=== PATIENT | male | born 1950 | race Caucasian/White ===

== ENCOUNTER 2017-03-28 20:21 | Inpatient (IN) | payer MEDICARE ==
[~2017-03-28] VITALS: Ht 175.3 cm; Wt 56.7 kg
[~2017-03-28 20:21] MED LIST: Alprazolam PO; CHOL4PAC4 PO; DIPH1TAB70 PO; LEVE500T9 PO; LORA-259 PO; PANT40TA2 PO; TRAZ150T75 PO
[2017-03-28 20:50] LABS: BASOPHILS # (AUTO) 0.1 /CMM (0.0-0.2); BASOPHILS % (AUTO) 0.5 % (0.0-2.0); EOSINOPHILS % (AUTO) 2.4 % (0.0-6.0); HEMATOCRIT 37 % (39-51); HEMOGLOBIN 12.6 g/dL (13.5-17.5); LYMPHOCYTES # (AUTO) 1.4 /CMM (0.8-4.8); LYMPHOCYTES % (AUTO) 9.3 % (20.0-44.0); MEAN CORPUSCULAR HGB CONC 34 g/dl (31.0-36.0); MEAN CORPUSCULAR VOLUME 92 fL (80-96); MONOCYTES # (AUTO) 1.1 /CMM (0.1-1.30); NEUTROPHILS # (AUTO) 12.5 /CMM (1.8-8.9); NEUTROPHILS % (AUTO) 80.8 % (43.0-81.0); PLATELET COUNT (AUTO) 310 /CMM (150-450); RDW COEFFICIENT OF VARIATION 12.8 (11.5-15.0); RED BLOOD CELL COUNT(AUTO) 4.02 MIL/uL (4.5-6.0); WHITE BLOOD COUNT (AUTO) 15.5 K/uL (4.3-11.0)
[2017-03-28] MEDS ORDERED: MAG HYDROX/AL HYDROX/SIMETH 30 ML UDC ONE (20:55)
[2017-03-28 21:00] LABS: CALCIUM, SERUM 9.4 mg/dL (8.5-10.1); CARBON DIOXIDE 29 mmol/L (21-32); CHLORIDE 100 mmol/L (98-107); CREATININE 1.2 mg/dL (0.6-1.3); GLUCOSE 101 mg/dL (74-106); POTASSIUM 3.9 mmol/L (3.5-5.1); SODIUM SERUM 136 mmol/L (136-145); UREA NITROGEN, BLOOD 21 mg/dL (7-18)
[2017-03-28] MEDS ORDERED: MAG HYDROX/AL HYDROX/SIMETH 30 ML UDC PO ONE (21:00)
[2017-03-28 21:06] LABS: ALANINE AMINOTRANSFERASE 92 U/L (12-78); ALBUMIN 3.2 g/dL (3.4-5.0); ALKALINE PHOSPHATASE 110 U/L (46-116); ASPARTATE AMINOTRANSFERASE 84 U/L (15-37); BILIRUBIN,DIRECT 0.1 mg/dL (0.0-0.2); BILIRUBIN,TOTAL 0.4 mg/dL (0.2-1.0); LIPASE 888 U/L (73-393); TOTAL PROTEIN, SERUM 8.7 g/dL (6.4-8.2)
[2017-03-28 21:08] LABS: TROPONIN I < 0.017 ng/mL (0.00-0.056)
[2017-03-28] MEDS ORDERED: ONDANSETRON HCL/PF 4 MG/2 ML VIAL IVP ONE (21:30)
[2017-03-28] MEDS ORDERED: HYDROMORPHONE INJ 2 MG/ML DISP.SYRIN IV ONE (21:30)
[2017-03-28] MEDS ORDERED: ACETAMINOPHEN 325 MG TABLET PO PRN (22:00)
[2017-03-28] MEDS ORDERED: ONDANSETRON HCL/PF 4 MG/2 ML VIAL IV PRN (22:00)
[2017-03-28] MEDS ORDERED: HYDROMORPHONE MDV 0.5 MG in IV D5W 50 ML IV PRN (22:00)
[2017-03-28] MEDS ORDERED: HYDROMORPHONE 1 MG/1 ML DISP.SYRIN ONE (22:02)
[2017-03-28] MEDS ORDERED: ONDANSETRON HCL/PF 4 MG/2 ML VIAL ONE (22:02)
[2017-03-28 22:30] VITALS: BP 146/71
[2017-03-28] MEDS ORDERED: HYDROCODONE/APAP 5/325MG 1 EACH TABLET PO PRN (22:30)
[2017-03-28] MEDS ORDERED: LORAZEPAM 1 MG TABLET PO PRN (22:30)
[2017-03-28] MEDS ORDERED: ZOLPIDEM TARTRATE 5 MG TABLET PO PRN (22:30)
[2017-03-28] MEDS: IV D5/ 0.9% NACL 1,000 ML IV SCH (22:58)
[2017-03-28 23:00] VITALS: BP 146/71
[2017-03-29 04:00] VITALS: BP 125/66
[2017-03-29 07:28] LABS: BASOPHILS % (AUTO) 0.2 % (0.0-2.0); EOSINOPHILS % (AUTO) 3.6 % (0.0-6.0); HEMATOCRIT 35 % (39-51); HEMOGLOBIN 11.6 g/dL (13.5-17.5); LYMPHOCYTES # (AUTO) 1.5 /CMM (0.8-4.8); LYMPHOCYTES % (AUTO) 12.2 % (20.0-44.0); MEAN CORPUSCULAR HGB CONC 33 g/dl (31.0-36.0); MEAN CORPUSCULAR VOLUME 95 fL (80-96); MONOCYTES % (AUTO) 8.2 % (2.0-12.0); NEUTROPHILS # (AUTO) 9.6 /CMM (1.8-8.9); NEUTROPHILS % (AUTO) 75.8 % (43.0-81.0); PLATELET COUNT (AUTO) 277 /CMM (150-450); RDW COEFFICIENT OF VARIATION 13.4 (11.5-15.0); RED BLOOD CELL COUNT(AUTO) 3.68 MIL/uL (4.5-6.0); WHITE BLOOD COUNT (AUTO) 12.6 K/uL (4.3-11.0)
[2017-03-29 07:51] LABS: BILIRUBIN,TOTAL 0.3 mg/dL (0.2-1.0); CALCIUM, SERUM 8.8 mg/dL (8.5-10.1); CREATININE 1.1 mg/dL (0.6-1.3); POTASSIUM 3.9 mmol/L (3.5-5.1); TOTAL PROTEIN, SERUM 7.8 g/dL (6.4-8.2)
[2017-03-29] MEDS: AMLODIPINE BESYLATE 5 MG TABLET PO SCH (09:04)
[2017-03-29] MEDS: PANTOPRAZOLE 40 MG TABLET.DR PO SCH (09:05)
[2017-03-29] MEDS: LEVETIRACETAM SOL (5 ML) 100 MG/ML UDC PO SCH ×2 (09:05→22:10)
[2017-03-29] MEDS: BOOST PLUS FOOD-CHOCLATE 237 ML BOX PO SCH ×2 (10:00→17:00)
[2017-03-29] MEDS ORDERED: ALPRAZOLAM 1 MG TABLET PO PRN (10:00)
[2017-03-29] MEDS: IV D5/ 0.9% NACL 1,000 ML IV SCH (10:17)
[2017-03-29] MEDS: ALPRAZOLAM 1 MG TABLET PO SCH ×2 (10:40→17:00)
[2017-03-29] MEDS: HYDROMORPHONE INJ 0.5 MG/0.5 ML SYRINGE IV PRN ×2 (16:08→20:08)
[2017-03-29 16:27] VITALS: BP 108/66
[2017-03-29 20:01] VITALS: BP 118/69
[2017-03-29 21:00] VITALS: BP 118/69
[2017-03-29] MEDS ORDERED: TRAZODONE 50 MG TABLET PO SCH (22:00)
[2017-03-30] MEDS: IV D5/ 0.9% NACL 1,000 ML IV SCH (05:28)
[2017-03-30] MEDS: HYDROMORPHONE INJ 0.5 MG/0.5 ML SYRINGE IV PRN (06:31)
[2017-03-30 06:50] LABS: BASOPHILS % (AUTO) 0.3 % (0.0-2.0); EOSINOPHILS % (AUTO) 5.6 % (0.0-6.0); HEMATOCRIT 33 % (39-51); HEMOGLOBIN 11.1 g/dL (13.5-17.5); LYMPHOCYTES # (AUTO) 1.2 /CMM (0.8-4.8); LYMPHOCYTES % (AUTO) 11.9 % (20.0-44.0); MEAN CORPUSCULAR HGB CONC 34 g/dl (31.0-36.0); MEAN CORPUSCULAR VOLUME 94 fL (80-96); MONOCYTES # (AUTO) 0.8 /CMM (0.1-1.30); MONOCYTES % (AUTO) 7.7 % (2.0-12.0); NEUTROPHILS # (AUTO) 7.5 /CMM (1.8-8.9); NEUTROPHILS % (AUTO) 74.5 % (43.0-81.0); PLATELET COUNT (AUTO) 299 /CMM (150-450); RDW COEFFICIENT OF VARIATION 13.1 (11.5-15.0); WHITE BLOOD COUNT (AUTO) 10.1 K/uL (4.3-11.0)
[2017-03-30 07:19] LABS: ALBUMIN 2.7 g/dL (3.4-5.0); BILIRUBIN,TOTAL 0.2 mg/dL (0.2-1.0); CALCIUM, SERUM 8.8 mg/dL (8.5-10.1); POTASSIUM 4.5 mmol/L (3.5-5.1); TOTAL PROTEIN, SERUM 7.2 g/dL (6.4-8.2)
[2017-03-30] MEDS: BOOST PLUS FOOD-CHOCLATE 237 ML BOX PO SCH (08:00)
[2017-03-30] MEDS: PANTOPRAZOLE 40 MG TABLET.DR PO SCH (08:45)
[2017-03-30] MEDS: ALPRAZOLAM 1 MG TABLET PO SCH (08:45)
[2017-03-30] MEDS: LEVETIRACETAM SOL (5 ML) 100 MG/ML UDC PO SCH (08:45)
[2017-03-30 08:46] VITALS: BP 155/76
[2017-03-30] MEDS: AMLODIPINE BESYLATE 5 MG TABLET PO SCH (08:46)
[2017-03-30] MEDS ORDERED: LEVETIRACETAM SOL (5 ML) 100 MG/ML UDC PO SCH (09:30)
== END 2017-03-30 10:48 | disposition left against medical advice (07) | DRG 439 ==
LOC: ER 20:28 → MED 22:03 → MEDSG2 03-29 09:06
PROVIDERS: ADMIT Internal Medicine; ATTEND Internal Medicine
DX: K85.90 Acute pancreatitis without necrosis or infection, unspecified (principal); I42.9 Cardiomyopathy, unspecified; J90 Pleural effusion, not elsewhere classified; R64 Cachexia; J43.9 Emphysema, unspecified; J84.10 Pulmonary fibrosis, unspecified; Z68.1 Body mass index [BMI] 19.9 or less, adult; N28.1 Cyst of kidney, acquired; E78.5 Hyperlipidemia, unspecified; D64.9 Anemia, unspecified; F41.9 Anxiety disorder, unspecified; G40.909 Epilepsy, unspecified, not intractable, without status epilepticus; I10 Essential (primary) hypertension; I25.10 Atherosclerotic heart disease of native coronary artery without angina pectoris; Z87.891 Personal history of nicotine dependence; G89.4 Chronic pain syndrome; F10.21 Alcohol dependence, in remission; D72.829 Elevated white blood cell count, unspecified; M47.896 Other spondylosis, lumbar region; M51.36 Other intervertebral disc degeneration, lumbar region; N28.9 Disorder of kidney and ureter, unspecified; R62.7 Adult failure to thrive; Z98.61 Coronary angioplasty status
CPT/HCPCS: 36415; 71045-TC; 76700-TC; 80048-TC; 80053-TC; 80061-TC; 80076-TC; 81000-TC; 82746; 83540-TC; 83690-TC; 84484-TC; 85025-TC; 87081-TC; A4606; J1170; J1953; J2405; J7042; J7060; Z7610

== ENCOUNTER 2017-10-07 17:46 | Inpatient (IN) | payer MEDICARE ==
[~2017-10-07] VITALS: Ht 177.8 cm; Wt 65.8 kg
[~2017-10-07 17:46] MED LIST changes: -CHOL4PAC4 PO; -DIPH1TAB70 PO
[2017-10-07 18:26] LABS: BASOPHILS # (AUTO) 0.1 /CMM (0.0-0.2); HEMATOCRIT 37 % (39-51); HEMOGLOBIN 12.2 g/dL (13.5-17.5); LYMPHOCYTES # (AUTO) 1.8 /CMM (0.8-4.8); MEAN CORPUSCULAR HEMOGLOBIN 31 PG (26.0-33.0); MEAN CORPUSCULAR HGB CONC 33 g/dl (31.0-36.0); MEAN CORPUSCULAR VOLUME 94 fL (80-96); MONOCYTES # (AUTO) 0.8 /CMM (0.1-1.30); MONOCYTES % (AUTO) 7.1 % (2.0-12.0); NEUTROPHILS # (AUTO) 7.9 /CMM (1.8-8.9); NEUTROPHILS % (AUTO) 70.9 % (43.0-81.0); PLATELET COUNT (AUTO) 487 /CMM (150-450); RDW COEFFICIENT OF VARIATION 13.1 (11.5-15.0); RED BLOOD CELL COUNT(AUTO) 3.95 MIL/uL (4.5-6.0); WHITE BLOOD COUNT (AUTO) 11.2 K/uL (4.3-11.0)
[2017-10-07 18:37] LABS: CALCIUM, SERUM 8.9 mg/dL (8.5-10.1); CARBON DIOXIDE 26 mmol/L (21-32); CHLORIDE 102 mmol/L (98-107); CREATININE 1.4 mg/dL (0.6-1.3); GLUCOSE 155 mg/dL (74-106); POTASSIUM 3.4 mmol/L (3.5-5.1); SODIUM SERUM 136 mmol/L (136-145); UREA NITROGEN, BLOOD 28 mg/dL (7-18)
[2017-10-07 18:47] LABS: ALANINE AMINOTRANSFERASE 59 U/L (12-78); ALKALINE PHOSPHATASE 84 U/L (46-116); ASPARTATE AMINOTRANSFERASE 63 U/L (15-37); BILIRUBIN,DIRECT 0.1 mg/dL (0.0-0.2); BILIRUBIN,TOTAL 0.4 mg/dL (0.2-1.0); TOTAL PROTEIN, SERUM 7.5 g/dL (6.4-8.2)
[2017-10-07 18:48] LABS: ACETAMINOPHEN < 2 ug/ml (10-30); ALCOHOL, BLOOD < 3 mg/dL (0-0); SALICYLATE 1.5 mg/dL (2.8-20.0)
[2017-10-07] MEDS ORDERED: POTASSIUM CHLORIDE 20 MEQ TAB.PRT.SR PO ONE ×2 (19:30→19:35)
[2017-10-07] MEDS ORDERED: IV NS 0.9% 500 ML BAG IV ONE (19:30)
--- NOTE | 2017-10-07 19:40 | NUR ---
pt resting comfortably in bed. nad. vss. easily aroused. initiated iv in r hand 18g. potassium given. well tolerated.
--- NOTE | 2017-10-07 19:40 | NUR ---
ATTEMPTED TO INITIATE IV AND ADMINISTER FLUIDS. PT IMMEDIATLEY SELF REMOVED IV. NOTIFIED
--- NOTE | 2017-10-07 19:49 | NUR ---
CALLED NURSING SPECIAL EVENTS MANAGER AND REQUESTED A GPS BED
--- NOTE | 2017-10-07 20:32 | NUR ---
PT IS ASSIGNED TO GPS #: [id number] FISCHER IS THE ACCEPTING PSYCHIATRIST
--- NOTE | 2017-10-07 20:42 | NUR ---
REPORT GIVEN TO GPS RN NOVEM
[2017-10-07 21:15] VITALS: BP 143/72
--- NOTE | 2017-10-07 21:16 | NUR ---
PT TRANSP GPS STABLE CONDITION
--- NOTE | 2017-10-07 21:17 | NUR ---
GPS-RN ADMITTED A 66-Y/O MALE, ADMITTED FROM [facility]. PT IS ON 5150 HOLD FOR DANGER TO SELF. PER HOLD PATIENT STATED "YOU DON'T KNOW WHAT I'M CAPABLE OF I'M GOING TO KILL MYSELF, I WANT TO ". UPON FACE TO FACE ASSESSMENT, PATIENT APPEARS TO BE ALERT, ORIENTED X1-2, ANXIOUS, CONFUSED AT TIMES, DEPRESSED. DENIES SI OR HALLUCINATIONS. NO ACUTE DISTRESS NOTED. NO COMPLAIN OF PAIN OR DISCOMFORT. AMBULATORY WITH ASSISTIVE DEVICE. BELONGINGS INVENTORIED AND CHECKED FOR CONTRABAND. PATIENT IS UNDER THE PSYCHIATRIC CARE OF DR. LISA, ORDERS OBTAINED, AND UNDER THE MEDICAL CARE OF LEAH LUCERO, BOTH DOCTORS ARE AWARE OF THE ADMISSION. SKIN BODY ASSESSMENT DONE. MRSA SCREENING DONE. BED LOCKED AND PLACED IN LOWEST POSITION. ROOM SAFETY CHECKED. FALL PRECAUTIONS MAINTAINED. WILL CONTINUE TO MONITOR Q15MIN ROUNDS FOR SAFETY AND BEHAVIOR.
[2017-10-07] MEDS ORDERED: ZOLPIDEM TARTRATE 5 MG TABLET PO PRN (21:30)
[2017-10-07] MEDS ORDERED: MAG HYDROX/AL HYDROX/SIMETH 30 ML UDC PO PRN (21:30)
[2017-10-08 08:08] VITALS: BP 151/63
[2017-10-08] MEDS: PANTOPRAZOLE 40 MG TABLET.DR PO SCH (08:20)
[2017-10-08] MEDS: LEVETIRACETAM (250 MG) 250 MG TABLET PO SCH ×2 (11:35→21:13)
[2017-10-08] MEDS: LORAZEPAM 0.5 MG TABLET PO PRN (14:05)
--- NOTE | 2017-10-08 14:05 | NUR ---
GPS/RN PATIENT IS ANXIOUS, RESTLESS AND EXTREMELY AGITATED. ADMINISTERED ATIVAN 0.5 MG, WILL CONTINUE TO MONITOR.
--- NOTE | 2017-10-08 15:14 | NUR ---
GPS/RN LEAD MECHANICAL ENGINEER ESTEVEZ AWARE OF HEMATOLOGY AND CHEMISTRY LABS DATED (10/07). RBC 3.95,WBC 11.2, PLT 487, BUN 28, CR 1.4, K 3.4,AST 63. NO NEW ORDERS AT THIS TIME.
--- NOTE | 2017-10-08 15:30 | NUR ---
INITIAL DISCHARGE PLAN: BRIDGETTE contacted Harika visitor information assistant at [facility] [address], [place] [address] who stated pt is able to return to the facility but an assessment and psych progress notes need to be done before pt is able to return to facility.
[2017-10-08] MEDS: MAGNESIUM HYDROXIDE 30 ML UDC PO PRN (15:44)
[2017-10-08 16:02] VITALS: BP 127/80
[2017-10-08 16:28] LABS: EOSINOPHILS % (AUTO) 0.1 % (0.0-6.0); HEMATOCRIT 37 % (39-51); LYMPHOCYTES # (AUTO) 0.6 /CMM (0.8-4.8); MEAN CORPUSCULAR HEMOGLOBIN 31 PG (26.0-33.0); MEAN CORPUSCULAR HGB CONC 33 g/dl (31.0-36.0); MEAN CORPUSCULAR VOLUME 94 fL (80-96); MONOCYTES % (AUTO) 0.4 % (2.0-12.0); NEUTROPHILS % (AUTO) 93.5 % (43.0-81.0); PLATELET COUNT (AUTO) 437 /CMM (150-450); RDW COEFFICIENT OF VARIATION 13.6 (11.5-15.0); RED BLOOD CELL COUNT(AUTO) 3.86 MIL/uL (4.5-6.0); WHITE BLOOD COUNT (AUTO) 9.6 K/uL (4.3-11.0)
[2017-10-08 16:54] LABS: CALCIUM, SERUM 8.7 mg/dL (8.5-10.1); CREATININE 1.1 mg/dL (0.6-1.3)
[2017-10-08 20:00] VITALS: BP 133/68
[2017-10-08 20:02] VITALS: BP 133/68
[2017-10-08] MEDS: QUETIAPINE FUMARATE 25 MG TABLET PO SCH (21:14)
[2017-10-09 07:43] LABS: BASOPHILS % (AUTO) 0.2 % (0.0-2.0); EOSINOPHILS % (AUTO) 0.9 % (0.0-6.0); HEMATOCRIT 35 % (39-51); HEMOGLOBIN 11.7 g/dL (13.5-17.5); LYMPHOCYTES # (AUTO) 0.8 /CMM (0.8-4.8); LYMPHOCYTES % (AUTO) 6.5 % (20.0-44.0); MEAN CORPUSCULAR HEMOGLOBIN 31 PG (26.0-33.0); MEAN CORPUSCULAR HGB CONC 33 g/dl (31.0-36.0); MEAN CORPUSCULAR VOLUME 95 fL (80-96); MONOCYTES # (AUTO) 0.5 /CMM (0.1-1.30); MONOCYTES % (AUTO) 4.3 % (2.0-12.0); NEUTROPHILS # (AUTO) 10.3 /CMM (1.8-8.9); NEUTROPHILS % (AUTO) 88.1 % (43.0-81.0); PLATELET COUNT (AUTO) 395 /CMM (150-450); RDW COEFFICIENT OF VARIATION 13.2 (11.5-15.0); RED BLOOD CELL COUNT(AUTO) 3.74 MIL/uL (4.5-6.0); WHITE BLOOD COUNT (AUTO) 11.7 K/uL (4.3-11.0)
[2017-10-09 08:00] VITALS: BP 143/74
[2017-10-09 08:08] LABS: BILIRUBIN,TOTAL 0.6 mg/dL (0.2-1.0); CALCIUM, SERUM 8.7 mg/dL (8.5-10.1); POTASSIUM 3.7 mmol/L (3.5-5.1); TOTAL PROTEIN, SERUM 7.3 g/dL (6.4-8.2)
[2017-10-09] MEDS: LEVETIRACETAM (250 MG) 250 MG TABLET PO SCH ×2 (08:44→21:37)
[2017-10-09] MEDS: PANTOPRAZOLE 40 MG TABLET.DR PO SCH (08:44)
[2017-10-09] MEDS: SERTRALINE HCL 25 MG TABLET PO SCH (08:44)
[2017-10-09] MEDS: LORAZEPAM 0.5 MG TABLET PO PRN (10:20)
--- NOTE | 2017-10-09 10:23 | NUR ---
GPS/RN-NOTES NOTED PATIENT VERY ANXIOUS PACING IN AND OUT OF HIS ROOM, REDIRECTED AND OFFERED ATIVAN. ATIVAN 0.5MG P.O GIVEN PRN ORDER. WILL CONT. MONITORING FOR SAFETY AND BEHAVIOR.
--- NOTE | 2017-10-09 11:20 | NUR ---
GPS/RN-NOTES PATIENT SLEEPING IN HIS BED,NO ACUTE DISTRESS NOTED.
[2017-10-09 16:08] VITALS: BP 133/99
[2017-10-09 20:00] VITALS: BP 124/62
[2017-10-09] MEDS: QUETIAPINE FUMARATE 25 MG TABLET PO SCH (21:37)
[2017-10-10 08:00] VITALS: BP 120/66
[2017-10-10] MEDS: LEVETIRACETAM (250 MG) 250 MG TABLET PO SCH ×2 (08:33→21:12)
[2017-10-10] MEDS: SERTRALINE HCL 25 MG TABLET PO SCH (08:33)
[2017-10-10] MEDS: PANTOPRAZOLE 40 MG TABLET.DR PO SCH (08:33)
[2017-10-10] MEDS: LORAZEPAM 0.5 MG TABLET PO PRN (09:44)
--- NOTE | 2017-10-10 09:44 | NUR ---
GPS/RN-NOTES NOTED PATIENT SITTING AND LAYING ON THE FLOOR WITNESS BY ONE OF THE STAFF.PATIENT STATED" I NEED MY CLOTHES TO CHANGE SO I CAN GO HOME". REDIRECTED PATIENT AND OFFERED ATIVAN 0.5MG P.O PRN. PATIENT ABLE TO WALK BACK IN HIS ROOM WITH STEADY GAIT,NO COMPLAIN OF ANY DISCOMFORT. ALL NEEDS ATTENDED AND ANTICIPATED. WILL CONT. MONITORING FOR SAFETY AND BEHAVIOR.
[2017-10-10 16:00] VITALS: BP 136/70
[2017-10-10 20:00] VITALS: BP 113/68
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
[2017-10-10] MEDS ORDERED: OLANZAPINE 10 MG VIAL IM ONE (20:30)
--- NOTE | 2017-10-10 20:39 | NUR ---
GPS/RN-PATIENT WAS TRANSFERED TO ROOM 217 FOR ROOMMATE INCOMPATIBILITY AND SAFETY ISSUES
[2017-10-10] MEDS: QUETIAPINE FUMARATE 25 MG TABLET PO SCH (21:13)
[2017-10-10] MEDS: clonazePAM 0.5 MG TABLET PO PRN (23:55)
--- NOTE | 2017-10-10 23:55 | NUR ---
RN NOTES PATIENT VERBALIZED THAT HE NEEDS SOMETHING TO HELP HIM SLEEP. ADMINISTERED KLONOPIN ORDERED. WILL CONTINUE TO MONITOR PT.
[2017-10-11 08:00] VITALS: BP 121/80
[2017-10-11] MEDS: SERTRALINE HCL 25 MG TABLET PO SCH (08:13)
[2017-10-11] MEDS: PANTOPRAZOLE 40 MG TABLET.DR PO SCH (08:13)
[2017-10-11] MEDS: LEVETIRACETAM (250 MG) 250 MG TABLET PO SCH ×2 (08:17→20:45)
[2017-10-11] MEDS: ACETAMINOPHEN 325 MG TABLET PO PRN (10:19)
[2017-10-11] MEDS: clonazePAM 0.5 MG TABLET PO PRN ×2 (11:13→20:46)
[2017-10-11 15:18] LABS: APPEARANCE,URINE CLEAR (CLEAR); BILIRUBIN,URINE NEGATIVE (NEGATIVE); BLOOD, URINE N Ery/uL (NEGATIVE); COLOR,URINE DARK YELLOW (YELLOW); KETONES,URINE NEGATIVE (NEGATIVE); LEUKOCYTE ESTERASE ,URINE TRACE (NEGATIVE); NITRITE, URINE NEGATIVE (NEGATIVE); PROTEIN,URINE TRACE mg/dl (NEGATIVE); UGLUCOSE NEGATIVE (NEGATIVE); UROBILINOGEN,URINE 0.2 EU/dL (0.2)
[2017-10-11 15:19] LABS: BACTERIA,URINE Rare /HPF (None Seen); RBC,URINE 0-2 /HPF (0-2); SQUAMOUS EPITHELIAL CELL,UR 0-2 /HPF (None Seen)
[2017-10-11 15:20] LABS: MUCUS,URINE Few /LPF (None Seen)
[2017-10-11 16:03] VITALS: BP 126/61
[2017-10-11] MEDS: QUETIAPINE FUMARATE 25 MG TABLET PO SCH (17:09)
[2017-10-11 19:39] VITALS: BP 114/62
[2017-10-12] MEDS: TEMAZEPAM 7.5 MG CAPSULE PO PRN ×2 (01:26→21:31)
[2017-10-12 08:00] VITALS: BP 119/71
[2017-10-12] MEDS: PANTOPRAZOLE 40 MG TABLET.DR PO SCH (08:31)
[2017-10-12] MEDS: QUETIAPINE FUMARATE 25 MG TABLET PO SCH ×4 (08:31→21:30)
[2017-10-12] MEDS: LEVETIRACETAM (250 MG) 250 MG TABLET PO SCH ×2 (08:31→21:30)
[2017-10-12] MEDS: SERTRALINE HCL 25 MG TABLET PO SCH (08:31)
[2017-10-12] MEDS: clonazePAM 1 MG TABLET PO PRN ×2 (09:54→18:39)
--- NOTE | 2017-10-12 09:54 | NUR ---
IRN-LH-BUZES: GAVE KLONOPIN 1 MG PO DUE TO SEVERE ANXIETY UPON PT REQUEST AND WILL CONTINUE TO MONITOR FOR EFFECTIVENESS OF MEDICATION.
[2017-10-12] MEDS ORDERED: clonazePAM 0.5 MG TABLET PO PRN (10:00)
--- NOTE | 2017-10-12 11:29 | NUR ---
BRIDGETTE faxed clinical packet to Harika university administrative assistant at [facility] [address], [place] [address] for review for re-admission.
[2017-10-12] MEDS ORDERED: LOPERAMIDE HCL (2 MG CAP) 2 MG CAPSULE PO PRN (11:30)
[2017-10-12 16:00] VITALS: BP 119/60
--- NOTE | 2017-10-12 18:39 | NUR ---
IBC-[id number]: GAVE KLONOPIN 1 MG PO FOR ANXIETY WILL CONTINUE TO MONITOR .
[2017-10-12 21:04] VITALS: BP 120/64
--- NOTE | 2017-10-12 21:30 | NUR ---
GPS RN NOTE PT ASKING FOR SLEEPING MED. RESTORIL 7.5 MG PO GIVEN.
--- NOTE | 2017-10-12 22:30 | NUR ---
GPS RN NOTE PT FALL ASLEEP, NO DISTRESS NOTED.
[2017-10-13] MEDS: clonazePAM 1 MG TABLET PO PRN ×2 (04:26→15:59)
--- NOTE | 2017-10-13 04:28 | NUR ---
GPS RN NOTE PT WOKE UP ANXIOUS, KLONOPIN 1 MG PO GIVEN FOR ANXIETY. CONTINUE TO MONITOR.
[2017-10-13 08:00] VITALS: BP 132/89
[2017-10-13] MEDS: SERTRALINE HCL 25 MG TABLET PO SCH (08:18)
[2017-10-13] MEDS: ACETAMINOPHEN 325 MG TABLET PO PRN (08:18)
[2017-10-13] MEDS: QUETIAPINE FUMARATE 25 MG TABLET PO SCH ×2 (08:19→20:16)
[2017-10-13] MEDS: PANTOPRAZOLE 40 MG TABLET.DR PO SCH (08:19)
[2017-10-13] MEDS: LEVETIRACETAM (250 MG) 250 MG TABLET PO SCH ×2 (08:19→20:16)
--- NOTE | 2017-10-13 11:23 | NUR ---
BRIDGETTE contacted Harika evaluation assistant at [facility] [address], [place] [address] who stated that pts clinical report hasn't been reviewed yet and BRIDGETTE informed Harika that by law facility needs to give their residence a 30 day notice if they no longer want pt living there. BRIDGETTE informed Harika that facility needs to take pt back. Harika responded that BRIDGETTE needs to speak to social insurance administrator who will make the decision to take pt back. BRIDGETTE asked to speak to the social insurance administrator Mary and Harika stated she was not in and stated she would return SW call.
--- NOTE | 2017-10-13 13:40 | NUR ---
BRIDGETTE attempted to contact Mary senior linux administrator at [facility] [address] [place] [address] but she was not available. Harika appeals assistant stated senior linux administrator was coming from a meeting and will return BRIDGETTE's call.
--- NOTE | 2017-10-13 14:46 | NUR ---
BRIDGETTE attempted to contact Mary server administrator at [facility] [address] [place] [address] but she was not available. Harika embalmer assistant stated server administrator was in a meeting. BRIDGETTE will call back.
--- NOTE | 2017-10-13 15:04 | NUR ---
BRIDGETTE attempted to contact Mary branch office administrator at [facility] [address] [place] [address] and was told that she was out giving a tour of their facility. BRIDGETTE informed stamp clerk that this was the 4th time she calls and her call has not been returned.
[2017-10-13 16:00] VITALS: BP 148/76
--- NOTE | 2017-10-13 16:02 | NUR ---
GPS RN NOTE PT ANXIOUS, KLONOPIN 1 MG PO GIVEN FOR ANXIETY. CONTINUE TO MONITOR.
--- NOTE | 2017-10-13 16:03 | NUR ---
BRIDGETTE spoke with Juan Alberto pathology secretary/transcriptionist at [facility] [address] [place] [address] who stated Harika or Mary will come tomorrow 10/14/17 to evaluate pt, SW asked if evaluation was confirmed by accounts receivable administrator and she stated that she had received electric confirmation from accounts receivable administrator Mary; time of evaluation is unknown.
--- NOTE | 2017-10-13 19:30 | NUR ---
GPS RN NOTES RECEIVED PT ON BED, A/OX2 SLEEPING . NO RESPIRATORY DISTRESS NOTED. BREATHING EVEN AND UNLABORED. NO COMPLAINTS OF PAIN. BED IN LOW AND LOCKED POSITION. BED ALARM ON. WILL CONTINUE TO MONITOR PT [id number] CHECKED BEHAVIOR AND SAFETY.
[2017-10-13] MEDS: TEMAZEPAM 7.5 MG CAPSULE PO PRN ×2 (20:16→21:31)
[2017-10-13 20:39] VITALS: BP 137/77
[2017-10-14] MEDS: clonazePAM 1 MG TABLET PO PRN ×2 (04:56→09:21)
[2017-10-14] MEDS: PANTOPRAZOLE 40 MG TABLET.DR PO SCH (07:30)
--- NOTE | 2017-10-14 08:00 | NUR ---
PT. REFUSED TO HAVE HIS VITAL SIGNS TAKEN, AND BLOOD DRAWN FOR LAB WORK.
[2017-10-14] MEDS: SERTRALINE HCL 25 MG TABLET PO SCH (09:00)
[2017-10-14] MEDS: QUETIAPINE FUMARATE 25 MG TABLET PO SCH ×2 (09:00→20:51)
[2017-10-14] MEDS: LEVETIRACETAM (250 MG) 250 MG TABLET PO SCH ×2 (09:22→20:50)
[2017-10-14] MEDS ORDERED: OLANZAPINE 10 MG VIAL IM STA ×2 (09:28→12:16)
--- NOTE | 2017-10-14 09:43 | NUR ---
GPS NOTES ZYPREXA 10 MG IM INJECTION WAS GIVEN. PT. VOLUNTARILY ACCEPTED ZYPREXA IM. PT. STATED, " I WANT TO GET THE ZYPREXA INJECTION". NO PHYSICAL HOLD WAS REQUIRED.
--- NOTE | 2017-10-14 10:43 | NUR ---
PT. REFUSED TO HAVE VITAL SIGNS CHECKED AFTER MEDICATION ADMINISTRATION. PT. WAS EXPLAINED THE PROCEDURE AND PT. REFUSED.
--- NOTE | 2017-10-14 11:00 | NUR ---
PT. HAS A 1:1 SITTER DUE TO PT. WAS HAVING DISRUPTIVE BEHAVING TO OTHER PATIENTS AND WAS UNCOOPERATIVE TO STAFF INSTRUCTIONS. WHEN PT. WAS IN BED HE CRAWLED OUT OF BED TO THE FLOOR AND WAS CRAWLING ON THE GROUND BEHAVING IN A DANGEROUS MANNER TO HIMSELF, AFTER PT. WAS ASKED TO GO BACK TO HIS BED, STRONGLY REFUSED. PT. WAS PROVIDED A PILLOW TO PROTECT HIS HEAD WHILE HE WAS CONTINUING TO LYE ON THE GROUND. PT. WAS ASSISTED SAFELY BACK INTO BED BY STAFF. NO NEW INJURIES NOTED.
--- NOTE | 2017-10-14 12:00 | NUR ---
RN NOTES PT. WAS BEHAVING HOSTILE TOWARDS STAFF, BY HITTING AND YELLING. PT. WAS COMBATIVE WITH SITTER AND OTHER STAFF WHILE HE WAS BEING ASSISTED BACK INTO BED.
--- NOTE | 2017-10-14 12:09 | NUR ---
BRIDGETTE contacted Mary certified novell administrator at [facility] [address] [place] [address] who stated that certified novell administrator would not be able to come assess pt on this present day and would come assess pt tomorrow 10/15/17 at 9:00am.
--- NOTE | 2017-10-14 12:27 | NUR ---
PT. STARTED TO SHOUT AND YELL, THEN HE STATED "HE NEEDS MORE MEDICATION". PT. WAS SEEN AND EXAMINED BY DR. LISA, AND A NEW ORDER WAS GIVEN FOR ZYPREXA 5 MG IM. PT. VOLUNTARILY ACCEPTED ZYPREXA IM INJECTION.
[2017-10-14] MEDS: hydrOXYzine PAMOATE 25 MG CAPSULE PO PRN (15:34)
[2017-10-14 15:59] LABS: BASOPHILS % (AUTO) 0.3 % (0.0-2.0); HEMATOCRIT 38 % (39-51); HEMOGLOBIN 12.3 g/dL (13.5-17.5); LYMPHOCYTES # (AUTO) 1.2 /CMM (0.8-4.8); LYMPHOCYTES % (AUTO) 8.7 % (20.0-44.0); MEAN CORPUSCULAR HEMOGLOBIN 31 PG (26.0-33.0); MEAN CORPUSCULAR HGB CONC 33 g/dl (31.0-36.0); MEAN CORPUSCULAR VOLUME 96 fL (80-96); MONOCYTES # (AUTO) 0.8 /CMM (0.1-1.30); MONOCYTES % (AUTO) 5.9 % (2.0-12.0); NEUTROPHILS # (AUTO) 11.3 /CMM (1.8-8.9); NEUTROPHILS % (AUTO) 84.1 % (43.0-81.0); PLATELET COUNT (AUTO) 393 /CMM (150-450); RED BLOOD CELL COUNT(AUTO) 3.92 MIL/uL (4.5-6.0); WHITE BLOOD COUNT (AUTO) 13.4 K/uL (4.3-11.0)
[2017-10-14 16:00] VITALS: BP 134/84
[2017-10-14] MEDS ORDERED: QUETIAPINE FUMARATE 25 MG TABLET PO ONE (16:00)
[2017-10-14 16:10] LABS: CALCIUM, SERUM 8.6 mg/dL (8.5-10.1); CREATININE 1.2 mg/dL (0.6-1.3)
[2017-10-14] MEDS: POTASSIUM CHLORIDE 20 MEQ POWDER PACKET PO SCH ×3 (17:16→20:24)
--- NOTE | 2017-10-14 20:25 | NUR ---
GPS/RECONSTRUCTIVE DENTIST; PT REFUSED TO TAKE THE 3RD DOSE OF THE POTASSIUM 20 MEQ PO PT GRABBED IT AND POURED INTO THE THRASH . CHARGE NURSE MADE AWARE AND SHE TALKED TO THE PT.
[2017-10-14 20:45] VITALS: BP 96/62
--- NOTE | 2017-10-14 20:50 | NUR ---
GPS/ACADEMIC SERVICES PROFESSIONAL; PER CHARGE NURSE PT C/O BACK PAIN AND TO GIVE TYLENOL. CHARGE NURSE GAVE PT THE TYLENOL 650 MG TABS. P[O Q6 PRN.
[2017-10-14] MEDS: ACETAMINOPHEN 325 MG TABLET PO PRN (20:51)
--- NOTE | 2017-10-14 21:00 | NUR ---
GPS/CLOTH CALENDER; JAQUI 500M TABS. PO AND SEROQUEL 50 MG PO GIVEN TO THE PT BY THE CHARGE AND PT TOOK IT.
[2017-10-14] MEDS: MAGNESIUM HYDROXIDE 30 ML UDC PO PRN (21:04)
--- NOTE | 2017-10-14 21:40 | NUR ---
GPS/MULTI SENSOR OPERATOR; MOM 30 ML PO GIVEN FOR C/O CONSTIPATION.
--- NOTE | 2017-10-14 22:20 | NUR ---
GPS/REGIONAL EXTENSION SERVICE SPECIALIST; MILDRED TOLD ME THAT PT WANTS SLEEPING PILL. RESTORIL 7.5 MG PO HS PRN GIVEN. WILL MONITOR.
[2017-10-14] MEDS: TEMAZEPAM 7.5 MG CAPSULE PO PRN (22:21)
[2017-10-15] MEDS: ACETAMINOPHEN 325 MG TABLET PO PRN ×2 (06:40→21:41)
--- NOTE | 2017-10-15 06:40 | NUR ---
GPS/SERVICE OR WORK DISPATCHER CHIEF; C/O BACK PAIN BP 128/79 HR 92 TYLENOL 650 MG TABS. PO Q6 PRN GIVEN. PT SAID I SLEPT GOOD LAST NIGHT AND I FELT A DIFFERENT PERSON.
[2017-10-15 07:50] LABS: CALCIUM, SERUM 8.5 mg/dL (8.5-10.1); CREATININE 1.1 mg/dL (0.6-1.3); POTASSIUM 3.3 mmol/L (3.5-5.1)
[2017-10-15 08:00] VITALS: BP 109/70
[2017-10-15] MEDS: LEVETIRACETAM (250 MG) 250 MG TABLET PO SCH ×2 (08:24→21:41)
[2017-10-15] MEDS: SERTRALINE HCL 25 MG TABLET PO SCH (08:24)
[2017-10-15] MEDS: PANTOPRAZOLE 40 MG TABLET.DR PO SCH (08:24)
[2017-10-15] MEDS: QUETIAPINE FUMARATE 25 MG TABLET PO SCH ×2 (08:24→16:52)
[2017-10-15] MEDS ORDERED: POTASSIUM CHLORIDE 20 MEQ TAB.PRT.SR PO SCH (10:30)
--- NOTE | 2017-10-15 12:45 | NUR ---
BRIDGETTE contacted Mary front desk administrator at [facility] [address], [place] [address] after not coming at 900 to assess pt. Mary stated that pt has been calling their facility and it has become an inconvenience to them BRIDGETTE informed Mary that she has been calling for the past 3 days and has not received a call back from her and was told by Harika that she would come today to assess pt and did not show. BRIDGETTE informed her that she needs to report to her regarding pts discharge and not report to pt as pt is on a hold. Mary stated that a physicians report needs to be completed in order to consider pt for re-admission and if physician does not give facility permission to change medication then they would not accept pt. BRIDGETTE stated to Mary that their facility needs to give pt a 30 day notice if they do not want to take him back. BRIDGETTE informed Mary that not taking pt back is illegal and this act can be reportable. Mary was upset and stated to BRIDGETTE to complete physicians report and send pt back and what she decided to do with pt afterwards is up to her. BRIDGETTE provided Mary with fax number and will complete physicians report as soon as possible.
[2017-10-15 16:00] VITALS: BP 137/90
--- NOTE | 2017-10-15 16:24 | NUR ---
BRIDGETTE faxed SNF referral to Chalo assistant clinical director at [facility] Address: [address] [place] [address] for review.
--- NOTE | 2017-10-15 17:36 | NUR ---
PT. IS CALM, COOPERATIVE AND FOLLOW DIRECTION. DR. LISA GAVE AN ORDER TO D/C 1:1.
[2017-10-15 19:14] LABS: APPEARANCE,URINE CLEAR (CLEAR); BILIRUBIN,URINE NEGATIVE (NEGATIVE); BLOOD, URINE NEGATIVE Ery/uL (NEGATIVE); COLOR,URINE YELLOW (YELLOW); KETONES,URINE NEGATIVE (NEGATIVE); LEUKOCYTE ESTERASE ,URINE NEGATIVE (NEGATIVE); NITRITE, URINE NEGATIVE (NEGATIVE); PROTEIN,URINE NEGATIVE (NEGATIVE); UGLUCOSE NEGATIVE (NEGATIVE); UROBILINOGEN,URINE 0.2 EU/dL (0.2)
[2017-10-15 20:28] VITALS: BP 98/65
[2017-10-15] MEDS ORDERED: QUETIAPINE FUMARATE 25 MG TABLET PO SCH (22:00)
[2017-10-15] MEDS: TEMAZEPAM 7.5 MG CAPSULE PO PRN (22:29)
[2017-10-16 06:55] LABS: BASOPHILS # (AUTO) 0.1 /CMM (0.0-0.2); BASOPHILS % (AUTO) 0.8 % (0.0-2.0); EOSINOPHILS % (AUTO) 11.2 % (0.0-6.0); HEMATOCRIT 32 % (39-51); HEMOGLOBIN 10.6 g/dL (13.5-17.5); LYMPHOCYTES # (AUTO) 1.2 /CMM (0.8-4.8); LYMPHOCYTES % (AUTO) 15.7 % (20.0-44.0); MEAN CORPUSCULAR HEMOGLOBIN 32 PG (26.0-33.0); MEAN CORPUSCULAR HGB CONC 33 g/dl (31.0-36.0); MEAN CORPUSCULAR VOLUME 96 fL (80-96); MONOCYTES # (AUTO) 0.6 /CMM (0.1-1.30); MONOCYTES % (AUTO) 8.1 % (2.0-12.0); NEUTROPHILS # (AUTO) 4.9 /CMM (1.8-8.9); NEUTROPHILS % (AUTO) 64.2 % (43.0-81.0); PLATELET COUNT (AUTO) 275 /CMM (150-450); RDW COEFFICIENT OF VARIATION 14.1 (11.5-15.0); RED BLOOD CELL COUNT(AUTO) 3.38 MIL/uL (4.5-6.0); WHITE BLOOD COUNT (AUTO) 7.7 K/uL (4.3-11.0)
[2017-10-16 07:01] LABS: CALCIUM, SERUM 8.1 mg/dL (8.5-10.1); POTASSIUM 3.6 mmol/L (3.5-5.1)
[2017-10-16 08:00] VITALS: BP 124/65
[2017-10-16] MEDS: PANTOPRAZOLE 40 MG TABLET.DR PO SCH (08:48)
[2017-10-16] MEDS: SERTRALINE HCL 25 MG TABLET PO SCH (08:48)
[2017-10-16] MEDS: QUETIAPINE FUMARATE 25 MG TABLET PO SCH (08:48)
[2017-10-16] MEDS: LEVETIRACETAM (250 MG) 250 MG TABLET PO SCH (08:48)
--- NOTE | 2017-10-16 09:30 | NUR ---
SW received notification from CJ immigration coordinator at [facility] Address: [address] [place] [address] stating pt was approved for admission.
--- NOTE | 2017-10-16 09:51 | NUR ---
DR. LISA GAVE AN ORDER TO D/C HOLD AND D/C TO [facility] AND TO FOLLOW UP WITH PSYCH AND MEDICAL DOCTORS.
[2017-10-16] MEDS: hydrOXYzine PAMOATE 25 MG CAPSULE PO PRN (11:14)
--- NOTE | 2017-10-16 12:30 | NUR ---
GPS/RN CALLED YEIMY ARSHAD FOR THE REPORT ON THE PT. GPS PHONE NUMBER LEFT FOR NURSE TO CALL BACK. PAULINE ANGELES CONFIRMED WITH ADMISSION THAT PT WAS ACCEPTED.
--- NOTE | 2017-10-16 13:15 | NUR ---
GPS/RN PT D/C TO [facility]. NO SI OR HI AT THE TIME OF D/C. VSS. PT IS AMBULATORY SELFCARE NO DISTRESS NOTED. REFUSED PICTURES ON DISCHARGE. EXIT CARE AND PRESCRIPTIONS GIVEN TO AMBULANCE. PROPERTY RETURNED.
--- NOTE | 2017-10-16 14:00 | NUR ---
BRIDGETTE received a phone call from Tyler stating [facility] did not have a bed available for pt and thus did not want to accept his admission and sent pt to [facility] and Tyler also stated that upon arrival to [facility] they did not have a bed available for pt and also denied admission. BRIDGETTE informed Tyler that [facility] had confirmed acceptance and thus why pt was discharged to their facility. BRIDGETTE then contacted Chalo Pilot Instructor of [facility] and [facility] [phone] who stated he would contact salon coordinator to fix problem. BRIDGETTE then received a phone call from Chalo stating that pt was accepted to [facility] however, pt refused to go and left [facility] with his friend who picked him up. Addendum: 10/16/17 at 1559 by PAULINE ANGELES TIME ERROR: CORRECT TIME OF REPORT 1500
--- NOTE | 2017-10-16 14:26 | NUR ---
DISCHARGE NOTE: Pt was discharged at 1300 via [facility] trip #[id number] to [facility] Address: [address] [place] [address] . Pts mood was pleasant with congruent affect. Pt denied suicidal/homicidal ideations and denied visual/auditory hallucinations. Pt will be under the medical care of Credit Risk Associate: Dr Coates Address: [address], [place] [address] [phone] and Psychiatrist: Dr. Callie Morrell [address], [place] [address] [phone]. Patient was provided referrals to address his substance and alcohol use. Patient was referred to the [address] [address] / and was encouraged to present at 9am on Thursday, October 19, 2017. Additional resources included [facility] [address] [place] [address] and [facility] [address] [place] [address] .The multidisciplinary exitcare form was done, printed, signed, and given to the patient.
--- NOTE | 2017-10-16 15:01 | NUR ---
GPS/RN RECEIVED CALL FROM ALPHASHANE/ADMISSION COORDINATOR AND REPORT GIVEN TO SANTIAGO @ [facility]
== END 2017-10-16 13:15 | DRG 885 ==
LOC: ER 17:52 → GPS 21:01
PROVIDERS: ADMIT Psychiatry & Neurology Psychiatry; ATTEND Hospitalist
DX: F39 Unspecified mood [affective] disorder (principal); N17.0 Acute kidney failure with tubular necrosis; E44.1 Mild protein-calorie malnutrition; F23 Brief psychotic disorder; R45.851 Suicidal ideations; E87.1 Hypo-osmolality and hyponatremia; I42.9 Cardiomyopathy, unspecified; F60.89 Other specific personality disorders; E87.6 Hypokalemia; I25.10 Atherosclerotic heart disease of native coronary artery without angina pectoris; M19.90 Unspecified osteoarthritis, unspecified site; J44.9 Chronic obstructive pulmonary disease, unspecified; D72.829 Elevated white blood cell count, unspecified; D64.9 Anemia, unspecified; Z68.20 Body mass index [BMI] 20.0-20.9, adult; G40.909 Epilepsy, unspecified, not intractable, without status epilepticus; E78.5 Hyperlipidemia, unspecified; G89.29 Other chronic pain; M54.5 Low back pain; F41.9 Anxiety disorder, unspecified; F32.9 Major depressive disorder, single episode, unspecified; F17.210 Nicotine dependence, cigarettes, uncomplicated; E86.1 Hypovolemia; D47.3 Essential (hemorrhagic) thrombocythemia; I10 Essential (primary) hypertension
CPT/HCPCS: 36415; 80048-TC; 80053-TC; 80061-TC; 80076-TC; 81000-TC; 82962-TC; 85025-TC; 87081-TC; A4606; G0480; J3490; J7030; Q0177; Z7610

== ENCOUNTER 2018-04-10 08:08 | Emergency (ER) | payer MEDICARE, OTHER ==
[~2018-04-10] VITALS: Ht 175.3 cm; Wt 77.1 kg
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
--- NOTE | 2018-04-10 08:20 | NUR ---
PT SEEN AND EXAMINED BY DR. MATIAS.
[2018-04-10] MEDS ORDERED: LORAZEPAM INJ 2 MG/ML VIAL IVP ONE (08:30)
[2018-04-10] MEDS ORDERED: LEVETIRACETAM (500MG) 500 MG in IV NS 0.9% 100 ML IV ONE (08:30)
--- NOTE | 2018-04-10 08:30 | NUR ---
LABS DRAWNED AND SENT TO LAB.
[2018-04-10 08:35] LABS: BASOPHILS % (AUTO) 0.6 % (0.0-2.0); EOSINOPHILS % (AUTO) 0.9 % (0.0-6.0); HEMATOCRIT 37 % (39-51); HEMOGLOBIN 12.1 g/dL (13.5-17.5); LYMPHOCYTES # (AUTO) 0.9 /CMM (0.8-4.8); LYMPHOCYTES % (AUTO) 12.8 % (20.0-44.0); MEAN CORPUSCULAR HGB CONC 33 g/dl (31.0-36.0); MEAN CORPUSCULAR VOLUME 89 fL (80-96); MONOCYTES # (AUTO) 0.6 /CMM (0.1-1.30); MONOCYTES % (AUTO) 8.5 % (2.0-12.0); NEUTROPHILS # (AUTO) 5.4 /CMM (1.8-8.9); NEUTROPHILS % (AUTO) 77.2 % (43.0-81.0); PLATELET COUNT (AUTO) 222 /CMM (150-450); RED BLOOD CELL COUNT(AUTO) 4.14 MIL/uL (4.5-6.0)
[2018-04-10] MEDS ORDERED: LORAZEPAM INJ 2 MG/ML VIAL ONE (08:35)
[2018-04-10 08:43] LABS: CALCIUM, SERUM 9.4 mg/dL (8.5-10.1); CREATININE 0.9 mg/dL (0.6-1.3)
--- NOTE | 2018-04-10 09:45 | NUR ---
IV removed. Catheter intact and site benign. Pressure and 4x4 applied to site. No bleeding noted. Patient discharged to home in stable condition. Written and verbal after care instructions given. Patient verbalizes understanding of instruction.
[2018-04-10 09:46] VITALS: BP 146/81
== END 2018-04-10 09:49 ==
LOC: ER 08:11
DX: G40.909 Epilepsy, unspecified, not intractable, without status epilepticus (principal); I10 Essential (primary) hypertension; F32.9 Major depressive disorder, single episode, unspecified; G89.29 Other chronic pain; F17.200 Nicotine dependence, unspecified, uncomplicated; Z79.899 Other long term (current) drug therapy
CPT/HCPCS: 36415; 80048; 85025; 96365; 96375; 99283; A4606; J1953; J2060; J7030

== ENCOUNTER 2018-04-12 04:42 | Emergency (ER) | payer OTHER, MEDICARE ==
[~2018-04-12] VITALS: Ht 175.3 cm; Wt 77.1 kg
[2018-04-12 04:50] VITALS: BP 167/89
[2018-04-12 05:10] LABS: HEMOGLOBIN 12.2 g/dL (13.5-17.5)
[2018-04-13] MEDS ORDERED: SUCR1TAB31 PO (15:57)
[2018-04-13] MEDS ORDERED: LISI2.5T2 PO (16:01)
[2018-04-13] MEDS ORDERED: MIRT15TA PO (16:03)
[2018-04-13] MEDS ORDERED: QUET50TA PO (16:05)
[2018-04-13] MEDS ORDERED: ASPI-1169 PO (16:06)
[2018-04-13] MEDS ORDERED: ATOR20TA PO (16:09)
[2018-04-13] MEDS ORDERED: SPIR25TA PO (16:11)
[2018-04-13] MEDS ORDERED: FLUO40CA8 PO (16:15)
[2018-04-13] MEDS ORDERED: OXYC15TA2 PO (17:01)
[2018-04-13] MEDS ORDERED: CLON1TAB12 PO (17:07)
== END 2018-04-12 05:47 ==
LOC: ER 04:43
DX: G40.909 Epilepsy, unspecified, not intractable, without status epilepticus (principal); I10 Essential (primary) hypertension; G89.29 Other chronic pain; F32.9 Major depressive disorder, single episode, unspecified; F17.200 Nicotine dependence, unspecified, uncomplicated; Z79.899 Other long term (current) drug therapy
CPT/HCPCS: 36415; 85027; 99283; A4606

== ENCOUNTER 2018-04-12 16:51 | Inpatient (IN) | payer MEDICARE, OTHER ==
[~2018-04-12] VITALS: Ht 172.7 cm; Wt 64.4 kg
--- NOTE | 2018-04-12 17:00 | NUR ---
BLANCHE WITH [facility] OFFICERS FOR BIZARRE BEHAVIOR AND NON-COMPLIANCE WITH MEDS AT CORRECTION; PT AAOX4, PT ON MONITOR, VSS, NAD NOTED, PENDING MD NAJERA
[2018-04-12] MEDS ORDERED: LORAZEPAM INJ 2 MG/ML VIAL IVP ONE (17:30)
[2018-04-12] MEDS ORDERED: IV NS 0.9% 500 ML BAG IV ONE (17:30)
[2018-04-12 17:52] LABS: BASOPHILS # (AUTO) 0.1 /CMM (0.0-0.2); BASOPHILS % (AUTO) 0.8 % (0.0-2.0); HEMATOCRIT 34 % (39-51); HEMOGLOBIN 11.3 g/dL (13.5-17.5); LYMPHOCYTES # (AUTO) 1.1 /CMM (0.8-4.8); LYMPHOCYTES % (AUTO) 11.2 % (20.0-44.0); MEAN CORPUSCULAR HGB CONC 33 g/dl (31.0-36.0); MEAN CORPUSCULAR VOLUME 89 fL (80-96); MONOCYTES # (AUTO) 0.8 /CMM (0.1-1.30); MONOCYTES % (AUTO) 8.1 % (2.0-12.0); NEUTROPHILS # (AUTO) 7.8 /CMM (1.8-8.9); NEUTROPHILS % (AUTO) 78.9 % (43.0-81.0); PLATELET COUNT (AUTO) 242 /CMM (150-450); RED BLOOD CELL COUNT(AUTO) 3.85 MIL/uL (4.5-6.0); WHITE BLOOD COUNT (AUTO) 9.9 K/uL (4.3-11.0)
[2018-04-12] MEDS ORDERED: LORAZEPAM INJ 2 MG/ML VIAL ONE (18:03)
[2018-04-12 18:07] LABS: POTASSIUM 3.1 mmol/L (3.5-5.1)
[2018-04-12 18:11] LABS: ALBUMIN 3.1 g/dL (3.4-5.0); BILIRUBIN,DIRECT 0.1 mg/dL (0.0-0.2); BILIRUBIN,TOTAL 0.4 mg/dL (0.2-1.0)
[2018-04-12] MEDS ORDERED: POTASSIUM CHLORIDE 20 MEQ TAB.PRT.SR PO ONE ×2 (19:00→19:07)
--- NOTE | 2018-04-12 21:30 | NUR ---
Patient is resting comfortably in bed with eyes closed. Easily aroused. VSS
--- NOTE | 2018-04-12 23:30 | NUR ---
Patient is resting comfortably in bed with eyes closed. Easily aroused. VSS
--- NOTE | 2018-04-13 04:30 | NUR ---
pt sleeping in [facility]. no signs of distress noted. pt vital signs within normal limits. will cont to monitor pt.
--- NOTE | 2018-04-13 08:25 | NUR ---
TERRANCE ANGELES AT BEDSIDE FOR EVAL.
--- NOTE | 2018-04-13 10:47 | NUR ---
BLANCA CASE MANAGEMENT AT BEDSIDE FOR EVAL.
--- NOTE | 2018-04-13 11:28 | NUR ---
ART STAINING MACHINE OPERATOR AT BEDSIDE FOR EVAL.
--- NOTE | 2018-04-13 11:59 | NUR ---
RADIOLOGY AT BEDSIDE FOR XRAY.
[2018-04-13] MEDS: LEVETIRACETAM SOL (5 ML) 100 MG/ML UDC PO SCH ×2 (12:07→21:13)
[2018-04-13] MEDS ORDERED: POTASSIUM CHLORIDE 20 MEQ TAB.PRT.SR PO ONE ×2 (13:27→13:30)
--- NOTE | 2018-04-13 14:12 | NUR ---
REPORT GIVEN TO KAY MENDOZA FOR XIMENA.
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
[2018-04-13] MEDS ORDERED: MAGNESIUM HYDROXIDE 30 ML UDC PO PRN ×2 (15:30)
[2018-04-13] MEDS ORDERED: LORAZEPAM 0.5 MG TABLET PO PRN (15:30)
[2018-04-13] MEDS ORDERED: TEMAZEPAM 7.5 MG CAPSULE PO PRN (15:30)
[2018-04-13] MEDS ORDERED: MAG HYDROX/AL HYDROX/SIMETH 30 ML UDC PO PRN ×2 (15:30)
[2018-04-13] MEDS ORDERED: ACETAMINOPHEN 325 MG TABLET PO PRN ×2 (15:30)
[2018-04-13] MEDS ORDERED: SUCR1TAB31 PO (15:57)
[2018-04-13] MEDS ORDERED: LISI2.5T2 PO (16:01)
[2018-04-13] MEDS ORDERED: MIRT15TA PO (16:03)
[2018-04-13 16:05] VITALS: BP 143/52
[2018-04-13] MEDS ORDERED: QUET50TA PO (16:05)
[2018-04-13] MEDS ORDERED: ASPI-1169 PO (16:06)
[2018-04-13] MEDS ORDERED: ATOR20TA PO (16:09)
[2018-04-13] MEDS ORDERED: SPIR25TA PO (16:11)
[2018-04-13] MEDS ORDERED: FLUO40CA8 PO (16:15)
[2018-04-13] MEDS ORDERED: OXYC15TA2 PO (17:01)
[2018-04-13] MEDS ORDERED: CLON1TAB12 PO (17:07)
[2018-04-13 20:00] VITALS: BP 134/65
--- NOTE | 2018-04-13 21:35 | NUR ---
GPS RN NOTES: ADMINISTERED KEPPRA DM 500MG / 10ML.
[2018-04-13] MEDS: ATORVASTATIN 10 MG TABLET PO SCH (21:37)
[2018-04-13] MEDS: LEVETIRACETAM (250 MG) 250 MG TABLET PO SCH (21:41)
[2018-04-14] MEDS: oxyCODONE HCL SR 10MG TAB.SR.12H PO PRN ×2 (04:09→21:57)
[2018-04-14] MEDS: SUCRALFATE 1 G TABLET PO SCH ×4 (05:51→17:59)
[2018-04-14 08:00] VITALS: BP 126/64
[2018-04-14 08:28] LABS: ALBUMIN 3.3 g/dL (3.4-5.0); BILIRUBIN,TOTAL 0.4 mg/dL (0.2-1.0); CREATININE 0.9 mg/dL (0.6-1.3); POTASSIUM 3.9 mmol/L (3.5-5.1); TOTAL PROTEIN, SERUM 7.4 g/dL (6.4-8.2)
[2018-04-14 08:30] LABS: CHOLESTEROL 123 mg/dL (<200); HDL CHOLESTEROL 50 mg/dL (40-60); LDL 66 mg/dL (0-99); TRIGLYCERIDES 58 mg/dL (30-150)
[2018-04-14] MEDS: LEVETIRACETAM (250 MG) 250 MG TABLET PO SCH ×2 (08:55→21:26)
[2018-04-14] MEDS: PANTOPRAZOLE 40 MG TABLET.DR PO SCH (08:56)
[2018-04-14] MEDS: LISINOPRIL (5MG) 5 MG TABLET PO SCH (08:57)
[2018-04-14] MEDS: SPIRONOLACTONE 25 MG TABLET PO SCH (08:58)
[2018-04-14] MEDS: ASPIRIN 81 MG TAB.CHEW PO SCH (08:58)
--- NOTE | 2018-04-14 11:20 | NUR ---
WOUND CARE CONSULT: PT PRESENTS WITH [facility]HE[employer]. SKIN IS INTACT. PT IS AMBULATORY AND CONTINENT. PT FOLLOWED BY DIETARY. WILL SEE PRN. CURRENT SAMY SCORE IS 19. PT REQUESTING ENSURE.
--- NOTE | 2018-04-14 12:40 | NUR ---
BRIDGETTE contacted pts trustee Lester Janell [phone] to inform him pt daniel be discharged to a SNF once stable. Lester stated, "I don't make decisions for him I just need an address to mail his check." BRIDGETTE informed him that she will contact him with SNF information once pt is ready for discharge. Lester agreed.
[2018-04-14] MEDS: QUETIAPINE FUMARATE 25 MG TABLET PO SCH ×4 (13:00→21:00)
--- NOTE | 2018-04-14 13:00 | NUR ---
INITIAL DISCHARGE PLAN: Patient needs placement and wishes to be discharged to a SNF. SW will help form a safe and proper discharge in collaboration with MD.
[2018-04-14] MEDS: GABAPENTIN 100 MG CAPSULE PO SCH ×2 (13:49→17:59)
[2018-04-14 16:00] VITALS: BP 139/86
[2018-04-14] MEDS: ENSURE ENLIVE 237 ML LIQUID (VANILLA) PO SCH (17:30)
[2018-04-14] MEDS: ATORVASTATIN 10 MG TABLET PO SCH (21:25)
--- NOTE | 2018-04-14 21:30 | NUR ---
GPS RN NOTES: PT.REFUSED NIGHT MEDS, SEROQUEL , ENCOURAGED EXPLAINED RISKS AND BENEFITS ,PT. STILL REFUSED. PT. BEHAVIOR VERY UNCOOPERTIVE , AGITATED. PER PT. I DONT WANT TAKE THIS MEDICATION .
[2018-04-15] MEDS: SUCRALFATE 1 G TABLET PO SCH ×5 (00:10→23:19)
[2018-04-15 08:00] VITALS: BP 118/59
[2018-04-15] MEDS: SERTRALINE HCL 25 MG TABLET PO SCH (08:54)
[2018-04-15] MEDS: LISINOPRIL (5MG) 5 MG TABLET PO SCH (08:55)
[2018-04-15] MEDS: LEVETIRACETAM (250 MG) 250 MG TABLET PO SCH ×2 (08:55→21:42)
[2018-04-15] MEDS: PANTOPRAZOLE 40 MG TABLET.DR PO SCH (08:55)
[2018-04-15] MEDS: GABAPENTIN 100 MG CAPSULE PO SCH ×3 (08:55→17:23)
[2018-04-15] MEDS: ASPIRIN 81 MG TAB.CHEW PO SCH (08:55)
[2018-04-15] MEDS: SPIRONOLACTONE 25 MG TABLET PO SCH (08:56)
[2018-04-15] MEDS: QUETIAPINE FUMARATE 25 MG TABLET PO SCH ×2 (08:57→12:16)
[2018-04-15] MEDS: ENSURE ENLIVE 237 ML LIQUID (VANILLA) PO SCH ×3 (09:00→17:23)
--- NOTE | 2018-04-15 13:30 | NUR ---
RN-CO: PATIENT THREATEN TO HURT DR LISA. ORDERED ZYPREXA 10 MG IM STAT, NOTED.
[2018-04-15] MEDS ORDERED: OLANZAPINE 10 MG VIAL IM STA (13:35)
[2018-04-15 16:00] VITALS: BP 95/65
[2018-04-15 20:00] VITALS: BP 114/57
[2018-04-15] MEDS: oxyCODONE HCL SR 10MG TAB.SR.12H PO PRN (20:17)
--- NOTE | 2018-04-15 20:18 | NUR ---
RN NOTES Patient c/o of back pain 11/02. Oxycontin 15mg given as ordered. Excess 5mg wasted with another RN. Will continue to monitor accordingly
[2018-04-15] MEDS: OLANZAPINE 5 MG/TAB.RAPDIS PO SCH (21:43)
[2018-04-15] MEDS: ATORVASTATIN 10 MG TABLET PO SCH (21:43)
[2018-04-16] MEDS: SUCRALFATE 1 G TABLET PO SCH ×4 (05:38→23:18)
[2018-04-16] MEDS: oxyCODONE HCL SR 10MG TAB.SR.12H PO PRN (05:46)
--- NOTE | 2018-04-16 05:46 | NUR ---
RN NOTES Patient c/o of back pain 12/02. Oxycontin 15mg given as ordered. Excess 5mg wasted with another RN. Will continue to monitor accordingly
[2018-04-16 08:00] VITALS: BP 95/64
[2018-04-16] MEDS: LEVETIRACETAM (250 MG) 250 MG TABLET PO SCH ×2 (08:21→21:23)
[2018-04-16] MEDS: GABAPENTIN 100 MG CAPSULE PO SCH ×3 (08:21→16:18)
[2018-04-16] MEDS: PANTOPRAZOLE 40 MG TABLET.DR PO SCH (08:21)
[2018-04-16] MEDS: ASPIRIN 81 MG TAB.CHEW PO SCH (08:21)
[2018-04-16] MEDS: LISINOPRIL (5MG) 5 MG TABLET PO SCH ×2 (08:22→17:32)
[2018-04-16] MEDS: ENSURE ENLIVE 237 ML LIQUID (VANILLA) PO SCH ×3 (08:23→16:18)
[2018-04-16] MEDS: SERTRALINE HCL 25 MG TABLET PO SCH (08:26)
[2018-04-16] MEDS: SPIRONOLACTONE 25 MG TABLET PO SCH ×2 (08:28→17:32)
[2018-04-16 16:00] VITALS: BP 146/68
[2018-04-16] MEDS: LORAZEPAM 0.5 MG TABLET PO PRN ×2 (16:18→21:23)
--- NOTE | 2018-04-16 17:33 | NUR ---
LILIAN ESTEVEZ (MEDICAL OR SURGICAL INSTRUMENT MAKER) in the unit and made aware that spironolactone and lisinopril not given in the morning for a low BP. Told that lbp 120/61 and NC 111 and ordered to give those meds now.
[2018-04-16 20:00] VITALS: BP 121/73
[2018-04-16] MEDS: ATORVASTATIN 10 MG TABLET PO SCH (21:23)
[2018-04-16] MEDS: OLANZAPINE 5 MG/TAB.RAPDIS PO SCH (21:23)
[2018-04-17] MEDS: SUCRALFATE 1 G TABLET PO SCH ×3 (06:00→17:22)
[2018-04-17 08:00] VITALS: BP 119/60
[2018-04-17] MEDS: SERTRALINE HCL 25 MG TABLET PO SCH (08:29)
[2018-04-17] MEDS: LEVETIRACETAM (250 MG) 250 MG TABLET PO SCH ×2 (08:29→20:48)
[2018-04-17] MEDS: LORAZEPAM 0.5 MG TABLET PO PRN ×2 (08:29→17:23)
[2018-04-17] MEDS: GABAPENTIN 100 MG CAPSULE PO SCH ×3 (08:29→16:29)
[2018-04-17] MEDS: PANTOPRAZOLE 40 MG TABLET.DR PO SCH (08:30)
[2018-04-17] MEDS: ASPIRIN 81 MG TAB.CHEW PO SCH (08:30)
[2018-04-17] MEDS: LISINOPRIL (5MG) 5 MG TABLET PO SCH (08:31)
[2018-04-17] MEDS: SPIRONOLACTONE 25 MG TABLET PO SCH (08:31)
[2018-04-17] MEDS: ENSURE ENLIVE 237 ML LIQUID (VANILLA) PO SCH ×3 (10:28→16:29)
[2018-04-17] MEDS: oxyCODONE HCL SR 10MG TAB.SR.12H PO PRN ×2 (13:12→21:10)
[2018-04-17 16:00] VITALS: BP 137/84
[2018-04-17 20:00] VITALS: BP 154/82
[2018-04-17] MEDS: OLANZAPINE 5 MG/TAB.RAPDIS PO SCH (21:09)
[2018-04-17] MEDS: ATORVASTATIN 10 MG TABLET PO SCH (21:09)
[2018-04-18] MEDS: LORAZEPAM 0.5 MG TABLET PO PRN ×2 (01:17→08:59)
[2018-04-18] MEDS: SUCRALFATE 1 G TABLET PO SCH ×4 (05:47→12:48)
[2018-04-18 08:00] VITALS: BP 117/67
[2018-04-18] MEDS: SPIRONOLACTONE 25 MG TABLET PO SCH (08:59)
[2018-04-18] MEDS: PANTOPRAZOLE 40 MG TABLET.DR PO SCH (08:59)
[2018-04-18] MEDS: LEVETIRACETAM (250 MG) 250 MG TABLET PO SCH ×2 (08:59→21:07)
[2018-04-18] MEDS: ENSURE ENLIVE 237 ML LIQUID (VANILLA) PO SCH ×3 (09:00→17:28)
[2018-04-18] MEDS: GABAPENTIN 100 MG CAPSULE PO SCH ×3 (09:00→17:30)
[2018-04-18] MEDS: SERTRALINE HCL 25 MG TABLET PO SCH (09:00)
[2018-04-18] MEDS: LISINOPRIL (5MG) 5 MG TABLET PO SCH (09:00)
[2018-04-18] MEDS: ASPIRIN 81 MG TAB.CHEW PO SCH (09:00)
[2018-04-18] MEDS: oxyCODONE HCL SR 10MG TAB.SR.12H PO PRN ×2 (12:45→21:06)
[2018-04-18 16:00] VITALS: BP 118/56
[2018-04-18] MEDS: LORAZEPAM 1 MG TABLET PO PRN (17:30)
[2018-04-18 20:20] VITALS: BP 114/54
--- NOTE | 2018-04-18 21:06 | NUR ---
RN NOTES PATIENT COMPLAINS OF GENERALIZED PAIN AT 8/10 ON THE PAIN SCALE. OXCONTIN 15 MG PO PRN GIVEN ORDERED. WILL REASSESS PAIN AND CONTINUE TO MONITOR .
[2018-04-18] MEDS: ATORVASTATIN 10 MG TABLET PO SCH (21:07)
[2018-04-18] MEDS: OLANZAPINE 5 MG/TAB.RAPDIS PO SCH (21:07)
[2018-04-18 22:00] VITALS: BP 118/67
[2018-04-19] MEDS: SUCRALFATE 1 G TABLET PO SCH ×4 (00:57→18:37)
[2018-04-19] MEDS: oxyCODONE HCL SR 10MG TAB.SR.12H PO PRN (05:25)
--- NOTE | 2018-04-19 05:25 | NUR ---
RN NOTES PATIENT COMPLAINS OF GENERALIZED PAIN AT 8/10 ON THE PAIN SCALE. OXCONTIN 15 MG PO PRN GIVEN ORDERED.VITAL SIGNS STABLES, WILL REASSESS PAIN AND CONTINUE TO MONITOR .
[2018-04-19 08:00] VITALS: BP 113/73
[2018-04-19] MEDS: LEVETIRACETAM (250 MG) 250 MG TABLET PO SCH ×2 (09:27→21:02)
[2018-04-19] MEDS: GABAPENTIN 100 MG CAPSULE PO SCH ×3 (09:28→18:37)
[2018-04-19] MEDS: SPIRONOLACTONE 25 MG TABLET PO SCH (09:28)
[2018-04-19] MEDS: PANTOPRAZOLE 40 MG TABLET.DR PO SCH (09:29)
[2018-04-19] MEDS: LISINOPRIL (5MG) 5 MG TABLET PO SCH (09:29)
[2018-04-19] MEDS: ASPIRIN 81 MG TAB.CHEW PO SCH (09:30)
[2018-04-19] MEDS: SERTRALINE HCL 25 MG TABLET PO SCH (09:30)
[2018-04-19] MEDS: ENSURE ENLIVE 237 ML LIQUID (VANILLA) PO SCH ×3 (09:38→18:00)
[2018-04-19] MEDS: LORAZEPAM 1 MG TABLET PO PRN ×2 (10:38→16:32)
--- NOTE | 2018-04-19 10:39 | NUR ---
gps rn note: patient stable, no sob, no acute distress, breathig even and unlabored, no s/s of pain and discomfort, report given to Maria VILLANUEVA
--- NOTE | 2018-04-19 11:16 | NUR ---
BRIDGETTE faxed SNF referral to German, instructional technology coordinator at [facility] [address] [place], [address] Fax: [phone] for review.
--- NOTE | 2018-04-19 11:17 | NUR ---
BRIDGETTE faxed SNF referral to Love, admissions clerk at [facility] Address: [address] [place] [address] for review.
[2018-04-19 16:00] VITALS: BP 118/66
[2018-04-19 20:10] VITALS: BP 90/53
[2018-04-19] MEDS: OLANZAPINE 5 MG/TAB.RAPDIS PO SCH (21:02)
[2018-04-19] MEDS: ATORVASTATIN 10 MG TABLET PO SCH (21:02)
[2018-04-19 21:38] VITALS: BP 108/65
[2018-04-20] MEDS: SUCRALFATE 1 G TABLET PO SCH ×4 (00:03→17:42)
[2018-04-20] MEDS: oxyCODONE HCL SR 10MG TAB.SR.12H PO PRN ×3 (00:41→20:02)
[2018-04-20 08:00] VITALS: BP 108/66
[2018-04-20] MEDS: ASPIRIN 81 MG TAB.CHEW PO SCH (09:04)
[2018-04-20] MEDS: LEVETIRACETAM (250 MG) 250 MG TABLET PO SCH ×2 (09:05→21:33)
[2018-04-20] MEDS: ENSURE ENLIVE 237 ML LIQUID (VANILLA) PO SCH ×3 (09:05→17:42)
[2018-04-20] MEDS: LORAZEPAM 1 MG TABLET PO PRN ×2 (09:05→14:29)
[2018-04-20] MEDS: SPIRONOLACTONE 25 MG TABLET PO SCH (09:05)
[2018-04-20] MEDS: LISINOPRIL (5MG) 5 MG TABLET PO SCH (09:05)
[2018-04-20] MEDS: SERTRALINE HCL 25 MG TABLET PO SCH (09:05)
[2018-04-20] MEDS: GABAPENTIN 100 MG CAPSULE PO SCH ×3 (09:05→17:42)
[2018-04-20] MEDS: PANTOPRAZOLE 40 MG TABLET.DR PO SCH (09:05)
[2018-04-20 16:00] VITALS: BP 141/71
[2018-04-20] MEDS: ATORVASTATIN 10 MG TABLET PO SCH (21:33)
[2018-04-20] MEDS: OLANZAPINE 5 MG/TAB.RAPDIS PO SCH (21:33)
[2018-04-20 21:51] VITALS: BP 109/58
[2018-04-21] MEDS: SUCRALFATE 1 G TABLET PO SCH ×4 (00:07→17:05)
[2018-04-21 08:00] VITALS: BP 145/59
[2018-04-21] MEDS: SPIRONOLACTONE 25 MG TABLET PO SCH (08:43)
[2018-04-21] MEDS: SERTRALINE HCL 25 MG TABLET PO SCH (08:43)
[2018-04-21] MEDS: LEVETIRACETAM (250 MG) 250 MG TABLET PO SCH ×2 (08:43→21:10)
[2018-04-21] MEDS: ASPIRIN 81 MG TAB.CHEW PO SCH (08:43)
[2018-04-21] MEDS: GABAPENTIN 100 MG CAPSULE PO SCH ×3 (08:43→17:05)
[2018-04-21] MEDS: LISINOPRIL (5MG) 5 MG TABLET PO SCH (08:44)
[2018-04-21] MEDS: PANTOPRAZOLE 40 MG TABLET.DR PO SCH (08:44)
[2018-04-21] MEDS: LORAZEPAM 1 MG TABLET PO PRN ×2 (08:45→14:29)
[2018-04-21] MEDS: ENSURE ENLIVE 237 ML LIQUID (VANILLA) PO SCH ×3 (08:46→17:05)
[2018-04-21 16:00] VITALS: BP 106/68
[2018-04-21 20:21] VITALS: BP 103/59
[2018-04-21] MEDS: ATORVASTATIN 10 MG TABLET PO SCH (21:10)
[2018-04-21] MEDS: OLANZAPINE 5 MG/TAB.RAPDIS PO SCH (21:10)
[2018-04-21] MEDS: oxyCODONE HCL SR 10MG TAB.SR.12H PO PRN (21:40)
[2018-04-22] MEDS: LORAZEPAM 1 MG TABLET PO PRN ×4 (00:31→21:38)
[2018-04-22] MEDS: SUCRALFATE 1 G TABLET PO SCH ×5 (00:33→23:40)
[2018-04-22 08:00] VITALS: BP 114/53
[2018-04-22] MEDS: LISINOPRIL (5MG) 5 MG TABLET PO SCH (09:00)
[2018-04-22] MEDS: GABAPENTIN 100 MG CAPSULE PO SCH ×3 (09:17→17:17)
[2018-04-22] MEDS: PANTOPRAZOLE 40 MG TABLET.DR PO SCH (09:17)
[2018-04-22] MEDS: LEVETIRACETAM (250 MG) 250 MG TABLET PO SCH ×2 (09:17→20:43)
[2018-04-22] MEDS: SERTRALINE HCL 25 MG TABLET PO SCH (09:18)
[2018-04-22] MEDS: SPIRONOLACTONE 25 MG TABLET PO SCH (09:18)
[2018-04-22] MEDS: ASPIRIN 81 MG TAB.CHEW PO SCH (09:18)
[2018-04-22] MEDS: ENSURE ENLIVE 237 ML LIQUID (VANILLA) PO SCH ×3 (09:23→17:16)
--- NOTE | 2018-04-22 09:37 | NUR ---
CLOTHES DELIVERED TO PT. PT OK'D TO DISPOSE OF CLOTHES HANGERS THAT CAME WITH BAG OF BELONGINGS. BELONGINGS CHARTED AND CHECKED BY POKER MACHINE ATTENDANT.
[2018-04-22] MEDS: oxyCODONE HCL SR 10MG TAB.SR.12H PO PRN ×2 (11:51→21:38)
[2018-04-22 16:00] VITALS: BP 133/75
[2018-04-22 20:00] VITALS: BP 99/56
[2018-04-22] MEDS: OLANZAPINE 5 MG/TAB.RAPDIS PO SCH (20:44)
[2018-04-22] MEDS: ATORVASTATIN 10 MG TABLET PO SCH (20:44)
--- NOTE | 2018-04-22 21:48 | NUR ---
GPS RN NOTES PT REQUESTING ATIVAN AND OXYCODONE TOGETHER. EXPLAINED RISK OF TAKING BOTH MEDICINE TOGETHER. WILL GIVEN ATIVAN 30MINS AFTER. WILL MONITOR PT CLOSELY.
--- NOTE | 2018-04-22 23:40 | NUR ---
GPS RN NOTES PT REFUSING 0000 MEDICINE. PER PT HE WANTS TO SLEEP. WILL MONITOR PT CLOSELY.
[2018-04-23] MEDS: SUCRALFATE 1 G TABLET PO SCH ×4 (05:34→23:48)
[2018-04-23 08:00] VITALS: BP 111/55
[2018-04-23] MEDS: LISINOPRIL (5MG) 5 MG TABLET PO SCH (09:00)
[2018-04-23] MEDS: ASPIRIN 81 MG TAB.CHEW PO SCH (09:15)
[2018-04-23] MEDS: SPIRONOLACTONE 25 MG TABLET PO SCH (09:15)
[2018-04-23] MEDS: GABAPENTIN 100 MG CAPSULE PO SCH ×3 (09:15→15:59)
[2018-04-23] MEDS: LEVETIRACETAM (250 MG) 250 MG TABLET PO SCH ×2 (09:15→21:01)
[2018-04-23] MEDS: PANTOPRAZOLE 40 MG TABLET.DR PO SCH (09:16)
[2018-04-23] MEDS: oxyCODONE HCL SR 10MG TAB.SR.12H PO PRN ×2 (09:17→17:53)
[2018-04-23] MEDS: LORAZEPAM 1 MG TABLET PO PRN ×3 (10:35→23:59)
[2018-04-23] MEDS: ENSURE ENLIVE 237 ML LIQUID (VANILLA) PO SCH ×3 (10:39→17:53)
[2018-04-23 16:00] VITALS: BP 109/66
[2018-04-23 20:00] VITALS: BP 98/54
--- NOTE | 2018-04-23 20:00 | NUR ---
GPS KAY NIELSEN RECEIVED PTS IN BED AWAKE ALERT X3 AMBULATORY , V/S STABLE , PTS IS COMPLIANT TO MEDICATION ,ALL DUE MEDS GIVEN ORDERED , NO SOB NO DISTRESS NOTED , COOPERATIVE , NO XIMENA NOTED AT THIS TIME , KEPT PTS CLEAN DRY AND COMFORTABLE, WILL CONTINUE TO MONITOR PTS.
[2018-04-23] MEDS: ATORVASTATIN 10 MG TABLET PO SCH (21:01)
[2018-04-23] MEDS: OLANZAPINE 5 MG/TAB.RAPDIS PO SCH (21:05)
--- NOTE | 2018-04-24 00:03 | NUR ---
GPS RN NOTES ATIVAN IMG GIVEN ORDERED , PTS BAN TO SLEEP.
[2018-04-24] MEDS: oxyCODONE HCL SR 10MG TAB.SR.12H PO PRN ×3 (03:05→21:00)
--- NOTE | 2018-04-24 03:07 | NUR ---
gps rn notes pts complain of lower back pain ,oxycontin 15mg given as ordered.will ontinue to monitor pts.
[2018-04-24] MEDS: SUCRALFATE 1 G TABLET PO SCH ×3 (06:15→18:01)
[2018-04-24 08:00] VITALS: BP 117/77
[2018-04-24] MEDS: LISINOPRIL (5MG) 5 MG TABLET PO SCH (09:00)
[2018-04-24] MEDS: SPIRONOLACTONE 25 MG TABLET PO SCH (09:51)
[2018-04-24] MEDS: GABAPENTIN 100 MG CAPSULE PO SCH ×3 (09:52→18:01)
[2018-04-24] MEDS: ASPIRIN 81 MG TAB.CHEW PO SCH (09:52)
[2018-04-24] MEDS: LEVETIRACETAM (250 MG) 250 MG TABLET PO SCH ×2 (09:52→20:52)
[2018-04-24] MEDS: PANTOPRAZOLE 40 MG TABLET.DR PO SCH (09:52)
[2018-04-24] MEDS: ENSURE ENLIVE 237 ML LIQUID (VANILLA) PO SCH ×3 (09:57→18:10)
[2018-04-24] MEDS: LORAZEPAM 1 MG TABLET PO PRN ×2 (10:24→18:03)
--- NOTE | 2018-04-24 10:24 | NUR ---
pt. medicated with ativan 1 mg po.
--- NOTE | 2018-04-24 12:37 | NUR ---
oxycontin 15 mg given for c/o low back pain.
[2018-04-24 16:00] VITALS: BP 119/69
--- NOTE | 2018-04-24 18:03 | NUR ---
medicated for nerves with ativan po.
[2018-04-24 20:00] VITALS: BP 100/61
[2018-04-24] MEDS: OLANZAPINE 5 MG/TAB.RAPDIS PO SCH (21:04)
[2018-04-24] MEDS: ATORVASTATIN 10 MG TABLET PO SCH (21:04)
[2018-04-25] MEDS: SUCRALFATE 1 G TABLET PO SCH ×5 (00:02→17:34)
[2018-04-25] MEDS: LORAZEPAM 1 MG TABLET PO PRN ×3 (02:28→15:37)
[2018-04-25] MEDS: oxyCODONE HCL SR 10MG TAB.SR.12H PO PRN ×2 (05:04→13:42)
[2018-04-25 08:00] VITALS: BP 105/67
[2018-04-25] MEDS: LISINOPRIL (5MG) 5 MG TABLET PO SCH (09:00)
[2018-04-25] MEDS: SPIRONOLACTONE 25 MG TABLET PO SCH (09:00)
[2018-04-25] MEDS: ENSURE ENLIVE 237 ML LIQUID (VANILLA) PO SCH ×3 (09:06→17:00)
[2018-04-25] MEDS: LEVETIRACETAM (250 MG) 250 MG TABLET PO SCH ×2 (09:07→20:43)
[2018-04-25] MEDS: ASPIRIN 81 MG TAB.CHEW PO SCH (09:07)
[2018-04-25] MEDS: PANTOPRAZOLE 40 MG TABLET.DR PO SCH (09:07)
[2018-04-25] MEDS: GABAPENTIN 100 MG CAPSULE PO SCH ×3 (09:07→17:34)
[2018-04-25 16:00] VITALS: BP 135/77
[2018-04-25 20:00] VITALS: BP 112/65
[2018-04-25] MEDS: ATORVASTATIN 10 MG TABLET PO SCH (21:13)
[2018-04-25] MEDS: OLANZAPINE 5 MG/TAB.RAPDIS PO SCH (21:13)
[2018-04-26] MEDS: SUCRALFATE 1 G TABLET PO SCH ×3 (00:02→12:00)
[2018-04-26] MEDS: oxyCODONE HCL SR 10MG TAB.SR.12H PO PRN (05:15)
[2018-04-26 08:00] VITALS: BP 110/56
[2018-04-26] MEDS: LORAZEPAM 1 MG TABLET PO PRN (08:45)
[2018-04-26] MEDS: PANTOPRAZOLE 40 MG TABLET.DR PO SCH (08:47)
[2018-04-26 08:48] VITALS: BP 110/56
[2018-04-26] MEDS: SPIRONOLACTONE 25 MG TABLET PO SCH (08:48)
[2018-04-26] MEDS: LEVETIRACETAM (250 MG) 250 MG TABLET PO SCH (08:48)
[2018-04-26] MEDS: LISINOPRIL (5MG) 5 MG TABLET PO SCH (08:48)
[2018-04-26] MEDS: ASPIRIN 81 MG TAB.CHEW PO SCH (08:49)
[2018-04-26] MEDS: GABAPENTIN 100 MG CAPSULE PO SCH (08:52)
[2018-04-26] MEDS: ENSURE ENLIVE 237 ML LIQUID (VANILLA) PO SCH (08:56)
--- NOTE | 2018-04-26 12:03 | NUR ---
DISCHARGE NOTE: Pt will be discharged at 12:30pm via [facility] ambulance trip #[id number], [address] . No family to notify. Pts mood is anxious with congruent affect. Pt denied visual/auditory hallucinations and denied suicidal/homicidal ideations. Pt will be under the care of Dr Coates Address: [address] [place] [address] and will follow up with psychiatric treatment and address substance use with Psychiatrist: Dr. Cano [address] [address] [phone]. The multidisciplinary exitcare form was done, printed, signed, and given to the patient.
--- NOTE | 2018-04-26 12:17 | NUR ---
PT PREPAPRED FRO D/C PER MD JOHNSTON, PT TOLERATING ROOM AIR WITHOUT DISTRESS AND DENIES PAIN OR DISCOMFORT AT THIS TIME. PT REPORTS A BIT OF ANXIETY AND EXCITEMENT R/T TO D/C. PT A&0X3, CALM AND GOAL ORIENTATED AT THIS TIME. PT SKIN PHOTOS COMPLETED BY DRY ICE MAKER. PT BRIEFED ON SOH D/C PACKET, DOCUMENTS AND POC AND VERBALIZING UNDERSTANDING. PT HEALTH NEEDS AND STATUS ENDORSED TO KAY MILLER AT [facility]. PT WITH ALL BELONGINGS AND DOCUMENT SIGNED. PT LEFT WITH EMT TRANS CREW, VITALS WNL AND WITHOUT COMPLAINT.
--- NOTE | 2018-05-11 12:49 | NUR ---
15 DAY SUBSTANCE ABUSE FOLLOW UP: Pt excluded due to discharge to SNF.
== END 2018-04-26 12:15 | DRG 885 ==
LOC: ER 16:52 → GPS 04-13 14:15
PROVIDERS: ADMIT Psychiatry & Neurology Psychiatry; ATTEND Psychiatry & Neurology Psychiatry
DX: F25.0 Schizoaffective disorder, bipolar type (principal); E44.0 Moderate protein-calorie malnutrition; I42.9 Cardiomyopathy, unspecified; F29 Unspecified psychosis not due to a substance or known physiological condition; G40.909 Epilepsy, unspecified, not intractable, without status epilepticus; D63.8 Anemia in other chronic diseases classified elsewhere; J44.9 Chronic obstructive pulmonary disease, unspecified; K21.9 Gastro-esophageal reflux disease without esophagitis; E78.5 Hyperlipidemia, unspecified; E87.6 Hypokalemia; F17.210 Nicotine dependence, cigarettes, uncomplicated; G89.29 Other chronic pain; I10 Essential (primary) hypertension; I25.10 Atherosclerotic heart disease of native coronary artery without angina pectoris; Z73.6 Limitation of activities due to disability; F39 Unspecified mood [affective] disorder; F60.89 Other specific personality disorders; E88.09 Other disorders of plasma-protein metabolism, not elsewhere classified; Z68.21 Body mass index [BMI] 21.0-21.9, adult
CPT/HCPCS: 36415; 74022-TC; 80048-TC; 80053-TC; 80061-TC; 80076-TC; 80305; 84484-TC; 85025-TC; 85730-TC; 87081-TC; J1953; J2060; J3490; J7040

== ENCOUNTER 2018-06-11 11:17 | Inpatient (IN) | payer MEDICARE ==
[~2018-06-11] VITALS: Ht 170.2 cm; Wt 46.7 kg
[~2018-06-11 11:17] MED LIST changes: +ASPI-1169 PO; +ATOR20TA PO; +CLON1TAB12 PO; +FLUO40CA8 PO; +LISI2.5T2 PO; +MIRT15TA PO; +OXYC15TA2 PO; +QUET50TA PO; +SPIR25TA PO; +SUCR1TAB31 PO
--- NOTE | 2018-06-11 11:20 | NUR ---
CAME IN FOR GENERALIZED WEAKNESS X 2 DAYS. " CANT TOLERATE FOOD AND NO APPETITE", "I ALSO HAD SEIZURE THIS 3AM". TO ER BED 3, HOOKED TO MONITOR, CHANGED TO GOWN, PROVIDED W WARM BLANKET, AWAITING MD NAJERA. SEIZURE PRECAUTIONS PLACED
--- NOTE | 2018-06-11 11:44 | NUR ---
DR. MONIQUE AT BEDSIDE FOR EVAL.
--- NOTE | 2018-06-11 12:10 | NUR ---
CONSTRUCTION PERSON AT BEDSIDE
[2018-06-11 12:19] LABS: BASOPHILS % (AUTO) 0.5 % (0.0-2.0); EOSINOPHILS % (AUTO) 0.9 % (0.0-6.0); HEMATOCRIT 32 % (39-51); HEMOGLOBIN 10.8 g/dL (13.5-17.5); LYMPHOCYTES # (AUTO) 0.6 /CMM (0.8-4.8); LYMPHOCYTES % (AUTO) 9.8 % (20.0-44.0); MEAN CORPUSCULAR HGB CONC 33 g/dl (31.0-36.0); MEAN CORPUSCULAR VOLUME 86 fL (80-96); MONOCYTES # (AUTO) 0.5 /CMM (0.1-1.30); MONOCYTES % (AUTO) 7.6 % (2.0-12.0); NEUTROPHILS # (AUTO) 4.9 /CMM (1.8-8.9); NEUTROPHILS % (AUTO) 81.2 % (43.0-81.0); PLATELET COUNT (AUTO) 209 /CMM (150-450); RED BLOOD CELL COUNT(AUTO) 3.75 MIL/uL (4.5-6.0); WHITE BLOOD COUNT (AUTO) 6.1 K/uL (4.3-11.0)
--- NOTE | 2018-06-11 12:20 | NUR ---
DIRECT SERVICE PROFESSIONAL AT BEDSIDE
[2018-06-11 12:30] LABS: CREATININE 1.1 mg/dL (0.6-1.3); POTASSIUM 4.3 mmol/L (3.5-5.1)
[2018-06-11 12:33] LABS: ACETAMINOPHEN 0 ug/ml (10-30); ALCOHOL, BLOOD < 3 mg/dL (0-0); SALICYLATE 0.9 mg/dL (2.8-20.0)
--- NOTE | 2018-06-11 12:35 | NUR ---
PT NOT ABLE TO PROVIDE URINE SAMPLE, MADE DR MONIQUE AWARE
[2018-06-11 12:42] LABS: BILIRUBIN,DIRECT 0.1 mg/dL (0.0-0.2); BILIRUBIN,TOTAL 0.4 mg/dL (0.2-1.0); TOTAL PROTEIN, SERUM 7.5 g/dL (6.4-8.2)
[2018-06-11] MEDS ORDERED: LORAZEPAM 1 MG TABLET ONE (12:53)
--- NOTE | 2018-06-11 12:56 | NUR ---
DUPLICATE ORDER FOR ATIVAN 1MG PO.
[2018-06-11] MEDS ORDERED: LORAZEPAM 1 MG TABLET PO ONE ×2 (13:00)
--- NOTE | 2018-06-11 13:49 | NUR ---
URINE SAMPLE SENT TO LAB
[2018-06-11] MEDS ORDERED: GABA-534 PO (14:19)
[2018-06-11] MEDS ORDERED: PANT40TA2 PO (14:19)
[2018-06-11] MEDS ORDERED: CLOP75TA15 PO (14:21)
--- NOTE | 2018-06-11 14:27 | NUR ---
PAGED [facility] FOR PANEL - PRODUCT CONTROL AND LOGISTICS ANALYST MUSHTAQ ALBERTO
[2018-06-11] MEDS ORDERED: FUROSEMIDE 20 MG/2 ML VIAL IV ONE (14:30)
[2018-06-11] MEDS ORDERED: ASPIRIN 81 MG TAB.CHEW PO ONE (14:30)
--- NOTE | 2018-06-11 14:35 | NUR ---
BED 220-A
[2018-06-11] MEDS ORDERED: ASPIRIN 81 MG TAB.CHEW ONE (14:45)
[2018-06-11] MEDS ORDERED: FUROSEMIDE 20 MG/2 ML VIAL ONE (14:45)
--- NOTE | 2018-06-11 15:34 | NUR ---
REPORT GIVEN TO NOVA VILLANUEVA OF MED-SURG UNIT
--- NOTE | 2018-06-11 15:36 | NUR ---
WHEELED OUT VIA WHEELCHAIR BY EMT, TO BE TRANSFERRED TO MED-SURG UNIT
--- NOTE | 2018-06-11 15:40 | NUR ---
AUTH SPECIALIST NOTES RECEIVED PATIENT ALERT AND ORIENTED. COMPLAINING OF BACK PAIN 10/02. NO SOB NOTED. ON ROOM AIR. AMBULATORY, CAME IN VIA WHEELCHAIR. SKIN INTACT. ADMITTING DX IS CHF. C/C WAS GENERALIZED WEAKNESS X2 DAYS, SOB, NO APPETITE AND HAD A SEIZURE THIS MORNING 0300. HAS A RIGHT FA #20 SALINE LOCKED. CONSTANTLY ASKING FOR PAIN MEDICATION. ADMITTING DOCTOR IS MUSHTAQ ALBERTO. BED ON LOWEST POSITION AND LOCKED. CALL LIGHT WITHIN REACH. WILL CONT TO MONITOR
[2018-06-11] MEDS ORDERED: CARV3.122 PO (15:49)
[2018-06-11 16:00] VITALS: BP 140/82
--- NOTE | 2018-06-11 16:58 | NUR ---
RN NOTE PAGED MUSHTAQ FOR ADMITTING ORDERS
[2018-06-11] MEDS ORDERED: ACETAMINOPHEN 325 MG TABLET PO PRN (17:30)
[2018-06-11] MEDS ORDERED: MAGNESIUM HYDROXIDE 30 ML UDC PO PRN (17:30)
[2018-06-11] MEDS ORDERED: Z GUARD REMEDY 2 OZ OINT TP PRN (17:30)
[2018-06-11] MEDS: HYDROCODONE/APAP 5/325MG 1 EACH TABLET PO PRN (17:42)
[2018-06-11 18:27] VITALS: BP 140/82
--- NOTE | 2018-06-11 18:40 | NUR ---
RN CLOSING NOTE MUSHTAQ ON BEDSIDE. PATIENT WAS GIVEN NORCO FOR BACK PAIN 10/02. KITCHEN DELIVERED THE DINNER. STABLE, AFEBRILE. NO SOB. WILL ENDORSE TO NOC SHIFT RN FOR CONT OF CARE
[2018-06-11] MEDS: ZOLPIDEM TARTRATE 5 MG TABLET PO PRN (19:00)
--- NOTE | 2018-06-11 19:15 | NUR ---
TELE/RN INITIAL NOTES RECEIVED PT IN BED, ASLEEP, AROUSABLE TO NAME AND LIGHT TOUCH. REQUESTED TO TURN OFF LIGHT PT FEEL SLEEPY, WAS GIVEN SLEEPING PILL BY AM RN. ON ROOM AIR NO SOB NOTED. SR ON TELE. RFA G20 PATENT, C/D/I. SAFETY MEASURES IN PLACED, CALL LIGHT WITHIN EASY REACH. WILL CONT TO MONITOR
[2018-06-11 20:00] VITALS: BP 110/69
[2018-06-11 20:04] LABS: APPEARANCE,URINE CLEAR (CLEAR); BILIRUBIN,URINE 1+ (NEGATIVE); BLOOD, URINE NEGATIVE Ery/uL (NEGATIVE); COLOR,URINE YELLOW (YELLOW); KETONES,URINE NEGATIVE (NEGATIVE); LEUKOCYTE ESTERASE ,URINE NEGATIVE (NEGATIVE); NITRITE, URINE NEGATIVE (NEGATIVE); PH,URINE 6.5 (5.0-8.0); PROTEIN,URINE TRACE mg/dl (NEGATIVE); UGLUCOSE NEGATIVE (NEGATIVE)
[2018-06-11 20:09] LABS: RBC,URINE 0-2 /HPF (0-2)
[2018-06-11 20:10] LABS: BACTERIA,URINE Few /HPF (None Seen); SQUAMOUS EPITHELIAL CELL,UR Few /HPF (None Seen); WBC,URINE 0-3 /HPF (0-3)
--- NOTE | 2018-06-11 22:10 | NUR ---
RN NOTES PT C/O ACHING BACK PAIN WITH PAIN SCALE OF 8-10/10. OFFERED PT NORCO, PT REFUSED, PER PT, HE IS TAKING PERCOCET FOR PAIN PAGED PASSENGER SERVICE SUPERVISOR LEAH ESTEVEZ RE: PT REQUESTING FOR PERCOCET, MENTIONED TO DIABETES PHYSICIAN THAT PT TAKES OXYCODONE 15MG PO PRN ON MED RECON. PER DIABETES PHYSICIAN, CONTINUE NORCO 5/325 PO Q6HR PRN FOR MODERATE PAIN AND NORCO 10/325 PO Q6HR PRN FOR SEVERE PAIN. ORDERS NOTED AND CARRIED OUT Addendum: 06/11/18 at 2241 by TYRESE DESAI RN ADD: OFFERED TO PT NORCO 10/325 FOR BACK PAIN, PT STRONGLY REFUSED, PT GOT AGITATED AND CURSING. PER PT, "I'VE BEEN TAKING OXYCODONE 15MG FOR PAIN, AND NORCO IS NOT EFFECTIVE FOR ME. I WANT TO SPEAK WITH YOUR CHARGE NURSE." EXPLAINED TO PT THAT THE HOSPITALIST ORDERED STRONGER NORCO OF 10/325 FOR HIS SEVERE PAIN. PT STILL WANTS TO SPEAK WITH CHARGE NURSE. CHARGE NURSE WENT TO PT ROOM, EXPLAINED THAT THE MD ORDERED NORCO 10/325 FOR HIS PAIN AND NOT OXYCODONE. PT STILL REFUSED AND GOT VERY UPSET, YELLING AND CURSING. TOOK OFF TELE BOX. STATING THAT HE'S GONNA GO HOME AND FILE A COMPLAIN. NOTIFIED LEAH ESTEVEZ RE: PT'S BEHAVIOR AND REQUEST. NOTIFIED THAT PT REFUSING TELE MONITOR DESPITE OF EXPLANATION OF RISKS AND BENEFITS. AWAITING FOR ORDERS
[2018-06-11] MEDS: HYDROCODONE/APAP 10/325MG 1 EA TABLET PO PRN (22:32)
--- NOTE | 2018-06-11 22:35 | NUR ---
RN NOTES PT APPROACHED NURSE AND AGREED TO TAKE NORCO 10/325 PO FOR SEVER PAIN. MEDS GIVEN, WILL MONITOR FOR RESULT
[2018-06-12] VITALS: BP_SYST 108; BP_SYST 115; BP_DIAS 61; BP_DIAS 71
[2018-06-12 04:00] VITALS: BP_SYST 108; BP_SYST 115; BP_DIAS 61; BP_DIAS 71
[2018-06-12] MEDS: HYDROCODONE/APAP 10/325MG 1 EA TABLET PO PRN (05:04)
[2018-06-12 06:52] LABS: BASOPHILS % (AUTO) 0.5 % (0.0-2.0); EOSINOPHILS % (AUTO) 7.1 % (0.0-6.0); HEMATOCRIT 32 % (39-51); HEMOGLOBIN 10.7 g/dL (13.5-17.5); LYMPHOCYTES # (AUTO) 0.8 /CMM (0.8-4.8); LYMPHOCYTES % (AUTO) 14.7 % (20.0-44.0); MEAN CORPUSCULAR HGB CONC 34 g/dl (31.0-36.0); MEAN CORPUSCULAR VOLUME 85 fL (80-96); MONOCYTES # (AUTO) 0.4 /CMM (0.1-1.30); MONOCYTES % (AUTO) 8.1 % (2.0-12.0); NEUTROPHILS # (AUTO) 3.7 /CMM (1.8-8.9); NEUTROPHILS % (AUTO) 69.6 % (43.0-81.0); PLATELET COUNT (AUTO) 251 /CMM (150-450); RED BLOOD CELL COUNT(AUTO) 3.76 MIL/uL (4.5-6.0); WHITE BLOOD COUNT (AUTO) 5.3 K/uL (4.3-11.0)
--- NOTE | 2018-06-12 07:01 | NUR ---
RN NOTES PT IN STABLE CONDITION. NO ACUTE CHANGES THROUGHOUT SHIFT. ALL NEEDS ANTICIPATED. SAFETY MEASURES OBSERVED AT ALL TIMES. ENDORSED TO AM SHIFT RN FOR XIMENA
--- NOTE | 2018-06-12 07:15 | NUR ---
SURG PHYSICIAN ASST OPENING NOTES\ RECEIVED REPORT FROM ASSISTANT PROFESSOR OF CHEMISTRY RN. PT IS REFUSING TO PUT TELE MONITOR BACK ON. PT IS COMPLAINING OF 10 OUT OF 10 PAIN BUT REFUSES TO ANSWERS MORE QUESTION AND STATES THAT OXYCODONE IS THE ONLY MEDICATION ABLE TO WORK ON HS PAIN. PT DID AGREE TO TAKE A NORCO WITH ASSISTANT PROFESSOR OF CHEMISTRY RN. PT DENIES ANY SOB AT PRESENT MOMENT. WILL CONTINUE TO MONITOR PT.
[2018-06-12 07:25] LABS: CALCIUM, SERUM 9.1 mg/dL (8.5-10.1); MAGNESIUM 1.6 mg/dL (1.8-2.4); PHOSPHORUS 3.3 mg/dL (2.5-4.9); POTASSIUM 3.9 mmol/L (3.5-5.1)
[2018-06-12 08:00] VITALS: BP 160/74
--- NOTE | 2018-06-12 09:21 | NUR ---
RN NOTES DR. GARDNER IS AWARE PT IS REFUSING TELE MONITOR BOX.
[2018-06-12] MEDS ORDERED: clonazePAM 1 MG TABLET PO PRN (10:00)
[2018-06-12] MEDS: oxyCODONE IR immediate release 5 MG PO PRN ×2 (10:07→16:07)
[2018-06-12] MEDS: SPIRONOLACTONE 25 MG TABLET PO SCH (10:10)
[2018-06-12] MEDS: ASPIRIN 81 MG TAB.CHEW PO SCH (10:10)
[2018-06-12] MEDS: GABAPENTIN 300 MG CAPSULE PO SCH ×3 (10:10→17:27)
[2018-06-12] MEDS: PANTOPRAZOLE 40 MG TABLET.DR PO SCH (10:10)
[2018-06-12] MEDS: CLOPIDOGREL BISULFATE 75 MG TABLET PO SCH (10:10)
[2018-06-12] MEDS: Magnesium 1GM/D5W 100ML PREMIX 100 ML IV SCH ×2 (10:11→12:38)
[2018-06-12] MEDS: CARVEDILOL 3.125 MG TABLET PO SCH ×2 (10:11→17:00)
[2018-06-12] MEDS: ONDANSETRON HCL/PF 4 MG/2 ML VIAL IVP PRN (10:13)
[2018-06-12] MEDS: LEVETIRACETAM (250 MG) 250 MG TABLET PO SCH ×2 (10:15→21:29)
[2018-06-12] MEDS: LISINOPRIL (5MG) 5 MG TABLET PO SCH (10:16)
[2018-06-12 10:54] LABS: THYROID STIMULATING HORMONE 0.598 uIU/mL (0.358-3.74)
[2018-06-12] MEDS: SUCRALFATE 1 G TABLET PO SCH ×2 (12:13→17:27)
[2018-06-12] MEDS: LORAZEPAM 1 MG TABLET PO PRN ×2 (12:13→21:29)
[2018-06-12] MEDS: HYDROCODONE/APAP 5/325MG 1 EACH TABLET PO PRN (15:47)
[2018-06-12 16:00] VITALS: BP 91/50
--- NOTE | 2018-06-12 19:09 | NUR ---
RN MS CLOSING NOTES GAVE REPORT TO RETAIL WIRELESS SALES REPRESENTATIVE RN.PT DENIES ANY SOB OR PAIN AT PRESENT MOMENT. BED IS LOCKED AND IN LOWEST POSITION CALL LIGHT IS WITHIN REACH. WILL ENDORSE CONTINUITY OF CARE TO RETAIL WIRELESS SALES REPRESENTATIVE RN.
--- NOTE | 2018-06-12 19:10 | NUR ---
MS/RN INITIAL NOTES RECEIVED PT IN BED, ASLEEP, AROUSABLE TO NAME AND LIGHT TOUCH. ON ROOM AIR NO SOB NOTED. RFA G20 PATENT, C/D/I. SAFETY MEASURES IN PLACED, CALL LIGHT WITHIN EASY REACH. WILL CONT TO MONITOR
[2018-06-12 20:00] VITALS: BP 107/56
[2018-06-12] MEDS: MIRTAZAPINE 15 MG TABLET PO SCH (21:29)
[2018-06-13] MEDS: SUCRALFATE 1 G TABLET PO SCH ×5 (00:21→23:17)
[2018-06-13 04:00] VITALS: BP 114/72
[2018-06-13] MEDS: oxyCODONE IR immediate release 5 MG PO PRN ×3 (04:12→17:02)
[2018-06-13 07:11] LABS: BASOPHILS % (AUTO) 0.3 % (0.0-2.0); EOSINOPHILS % (AUTO) 7.7 % (0.0-6.0); HEMATOCRIT 32 % (39-51); HEMOGLOBIN 10.9 g/dL (13.5-17.5); LYMPHOCYTES % (AUTO) 16.2 % (20.0-44.0); MEAN CORPUSCULAR HGB CONC 34 g/dl (31.0-36.0); MEAN CORPUSCULAR VOLUME 85 fL (80-96); MONOCYTES # (AUTO) 0.6 /CMM (0.1-1.30); MONOCYTES % (AUTO) 8.7 % (2.0-12.0); NEUTROPHILS # (AUTO) 4.3 /CMM (1.8-8.9); NEUTROPHILS % (AUTO) 67.1 % (43.0-81.0); PLATELET COUNT (AUTO) 311 /CMM (150-450); RED BLOOD CELL COUNT(AUTO) 3.77 MIL/uL (4.5-6.0); WHITE BLOOD COUNT (AUTO) 6.4 K/uL (4.3-11.0)
--- NOTE | 2018-06-13 07:25 | NUR ---
MS RN OPENING NOTE RECEIVED PT IN BED, ASLEEP, BUT EASY TO AROUSE BY CALLING NAME AND LIGHT TOUCH. ON ROOM AIR, NO SOB NOTED. RFA G20 PATENT, C/D/I. SAFETY MEASURES IN PLACE, CALL LIGHT WITHIN EASY REACH. BED LOCKED AND IN LOWEST POSITION. PT STATED SHE WOULD LIKE TO GO TO REHAB FOR XIMENA. WILL TALK TO AUTOMOTIVE EXHAUST EMISSIONS TECHNICIAN ABOUT IT. WILL CONT TO MONITOR. Addendum: 06/13/18 at 0739 by SANDY MANCILLA RN CLARIFICATION: DISREGARD "PT STATED SHE WOULD LIKE TO GO TO REHAB FOR XIMENA. WILL TALK TO AUTOMOTIVE EXHAUST EMISSIONS TECHNICIAN ABOUT IT."
[2018-06-13 07:42] LABS: ALBUMIN 2.8 g/dL (3.4-5.0); BILIRUBIN,TOTAL 0.3 mg/dL (0.2-1.0); CALCIUM, SERUM 8.9 mg/dL (8.5-10.1); PHOSPHORUS 3.7 mg/dL (2.5-4.9); POTASSIUM 4.1 mmol/L (3.5-5.1); TOTAL PROTEIN, SERUM 7.1 g/dL (6.4-8.2)
[2018-06-13] MEDS: PANTOPRAZOLE 40 MG TABLET.DR PO SCH (08:28)
[2018-06-13] MEDS: LORAZEPAM 1 MG TABLET PO PRN ×2 (08:46→23:17)
[2018-06-13] MEDS: CLOPIDOGREL BISULFATE 75 MG TABLET PO SCH (08:48)
[2018-06-13] MEDS: GABAPENTIN 300 MG CAPSULE PO SCH ×3 (08:49→16:52)
[2018-06-13] MEDS: FLUOXETINE HCL 20 MG CAPSULE PO SCH (08:49)
[2018-06-13] MEDS: LEVETIRACETAM (250 MG) 250 MG TABLET PO SCH ×2 (08:50→21:23)
[2018-06-13] MEDS: SPIRONOLACTONE 25 MG TABLET PO SCH (08:50)
[2018-06-13] MEDS: LISINOPRIL (5MG) 5 MG TABLET PO SCH (08:51)
[2018-06-13] MEDS: CARVEDILOL 3.125 MG TABLET PO SCH ×2 (08:52→16:53)
[2018-06-13] MEDS: ASPIRIN 81 MG TAB.CHEW PO SCH (08:52)
[2018-06-13] MEDS: ONDANSETRON HCL/PF 4 MG/2 ML VIAL IVP PRN (12:30)
[2018-06-13 16:00] VITALS: BP 124/68
[2018-06-13] MEDS: HYDROCODONE/APAP 5/325MG 1 EACH TABLET PO PRN (16:54)
--- NOTE | 2018-06-13 19:30 | NUR ---
MS RN CLOSING NOTE PT RESTING IN BED. ALERT AND ORIENTED X3. ON ROOM AIR, NO SOB NOTED. RFA G20 PATENT, C/D/I. SAFETY MEASURES IN PLACE THROUGHOUT SHIFT. NO ACUTE CHANGES THROUGHOUT SHIFT. ALL MD ORDERS ATTENDED. ENDORSED TO FRONT DESK HOST NURSE FOR XIMENA.
--- NOTE | 2018-06-13 19:39 | NUR ---
MS RN NOTES RECEIVED PT ON BED. IV ACCESS ON RFA G20 PATENT AND INTACT. PT SLEEPING. A/O X 4. HEAD OF BED ELEVATED. SIDE RAILS UP. ON ROOM AIR NO RESPIRATORY DISTRESS NOTED. CALL LIGHT WITHIN REACH. BED ALARM ON. WILL CONTINUE TO MONITOR PT CLOSELY.
[2018-06-13 20:00] VITALS: BP 95/55
[2018-06-13] MEDS: MIRTAZAPINE 15 MG TABLET PO SCH (21:22)
--- NOTE | 2018-06-13 23:16 | NUR ---
MS RN NOTES PT REQUESTING ATIVAN, BLOOD PRESSURE 102/50.EXPLAINED RISK AND BENEFITS. PT STILL WANTS IT. CHARGE NURSE INFORMED.
[2018-06-14] MEDS: SUCRALFATE 1 G TABLET PO SCH ×5 (05:44→23:23)
[2018-06-14 06:23] VITALS: BP 94/60
--- NOTE | 2018-06-14 07:20 | NUR ---
MS RN OPENING NOTE RECEIVED REPORT FROM PM NURSE. PT IN BED.AXOX4. ON O2 2L VIA NASAL CANULA. NO SOB NO DISTRESS NOTED AT THIS TIME. IV ON RFA G20 PATENT, C/D/I. SAFETY MEASURES IN PLACE.CALL LIGHT WITHIN EASY REACH. BED LOCKED AND IN LOWEST POSITION. SRX2.WILL CONTINUE TO MONITOR.
--- NOTE | 2018-06-14 07:24 | NUR ---
MS RN NOTES PT UNCOOPERATIVE REGARDING HIS CARE. REFUSING MEDICINE THROUGHOUT THE SHIFT. ENDORSE TO THE AM NURSE FOR CONTINUITY OF CARE.
[2018-06-14] MEDS ORDERED: PANTOPRAZOLE 40 MG TABLET.DR PO SCH (07:30)
[2018-06-14 07:40] LABS: CALCIUM, SERUM 9.3 mg/dL (8.5-10.1); CREATININE 1.3 mg/dL (0.6-1.3); POTASSIUM 5.2 mmol/L (3.5-5.1)
[2018-06-14] MEDS: PANTOPRAZOLE 40 MG TABLET.DR PO SCH (07:40)
[2018-06-14 07:45] LABS: BASOPHILS % (AUTO) 0.6 % (0.0-2.0); EOSINOPHILS % (AUTO) 6.4 % (0.0-6.0); HEMATOCRIT 34 % (39-51); HEMOGLOBIN 11.1 g/dL (13.5-17.5); LYMPHOCYTES # (AUTO) 1.2 /CMM (0.8-4.8); LYMPHOCYTES % (AUTO) 18.4 % (20.0-44.0); MEAN CORPUSCULAR HGB CONC 33 g/dl (31.0-36.0); MEAN CORPUSCULAR VOLUME 86 fL (80-96); MONOCYTES # (AUTO) 0.5 /CMM (0.1-1.30); MONOCYTES % (AUTO) 8.4 % (2.0-12.0); NEUTROPHILS # (AUTO) 4.2 /CMM (1.8-8.9); NEUTROPHILS % (AUTO) 66.2 % (43.0-81.0); PLATELET COUNT (AUTO) 343 /CMM (150-450); RED BLOOD CELL COUNT(AUTO) 3.93 MIL/uL (4.5-6.0); WHITE BLOOD COUNT (AUTO) 6.4 K/uL (4.3-11.0)
[2018-06-14] MEDS: oxyCODONE IR immediate release 5 MG PO PRN ×3 (07:52→22:12)
[2018-06-14 08:00] VITALS: BP 117/66
[2018-06-14] MEDS: LEVETIRACETAM (250 MG) 250 MG TABLET PO SCH ×2 (08:35→22:08)
[2018-06-14] MEDS: ASPIRIN 81 MG TAB.CHEW PO SCH (08:36)
[2018-06-14] MEDS: LISINOPRIL (5MG) 5 MG TABLET PO SCH (08:36)
[2018-06-14] MEDS: SPIRONOLACTONE 25 MG TABLET PO SCH (08:36)
[2018-06-14] MEDS: FLUOXETINE HCL 20 MG CAPSULE PO SCH (08:36)
[2018-06-14] MEDS: GABAPENTIN 300 MG CAPSULE PO SCH ×3 (08:36→16:23)
[2018-06-14] MEDS: CLOPIDOGREL BISULFATE 75 MG TABLET PO SCH (08:36)
[2018-06-14] MEDS: CARVEDILOL 3.125 MG TABLET PO SCH ×2 (08:36→16:22)
--- NOTE | 2018-06-14 09:00 | NUR ---
MS RN NOTE PATIENT REFUSED BP MEDS.EXPLAINED RISK AND BENEFIT STILL REFUSING.WILL CONTINUE TO MONITOR.
[2018-06-14] MEDS: LORAZEPAM 1 MG TABLET PO PRN ×2 (12:09→20:12)
--- NOTE | 2018-06-14 12:45 | NUR ---
MS RN NOTE SEEN BY ,UPDATED ABOUT PATIENT CONDITION,GOT ORDER FOR EGD TOMORROW ,06/15/18.STAT PTINR AND APTT.EXPLAINED PROCEDURE TO THE PATIENT BY .HE SINGED THE CONSENT.WILL CONTINUE TO MONITOR
[2018-06-14] MEDS ORDERED: SODIUM POLYSTYRENE SULFONATE 15 G/60 ML BOTTLE PO ONE (14:00)
--- NOTE | 2018-06-14 14:15 | NUR ---
MS RN NOTE SEEN BY LEAH LANDIN,UPDATED ABOUT PATIENT CONDITION WITH LABS,GOT NEW ORDER FOR KAYEXALATE.WILL CONTINUE TO MONITOR.
[2018-06-14] MEDS: SOD FERRIC GLUC 125 MG in IV NS 0.9% 100 ML IV SCH (14:23)
[2018-06-14 16:00] VITALS: BP 91/53
--- NOTE | 2018-06-14 18:33 | NUR ---
MS RN NOTE SEEN BY ,UPDATED ABOUT PATIENT CONDITION.NNO.
--- NOTE | 2018-06-14 19:15 | NUR ---
MS RN CLOSING NOTE PT IN BED.AXOX4. ON O2 2L VIA NASAL CANULA. NO SOB NO DISTRESS NOTED AT THIS TIME. IV ON RFA G20 PATENT, C/D/I. SAFETY MEASURES IN PLACE.CALL LIGHT WITHIN EASY REACH. BED LOCKED AND IN LOWEST POSITION. SRX2.EGD TOMORROW AT 0900 AM.ENDORSED TO PM NURSE FOR XIMENA.
[2018-06-14 20:00] VITALS: BP 99/59
--- NOTE | 2018-06-14 20:21 | NUR ---
RN OPENING NOTES RECEIVED REPORT FROM RAJ VILLANUEVA. PATIENT A/A/O X3, ABLE TO MAKE NEEDS KNOWN. BREATHING EVEN & UNLABORED, TOLERATING ROOM AIR. DENIES ANY SOB OR DIFFICULTY BREATHING. RADIAL PULSES PRESENT. RIGHT FOREARM IV #20 INTACT & PATENT W/ DRESSING CDI, SALINE LOCKED. DENIES ANY PAIN OR DISCOMFORT @ THIS TIME. SAFETY MEASURES IN PLACE W/ SIDE RAILS UP & CALL LIGHT WITHIN REACH. ABLE TO AMBULATE INDEPENDENTLY W/ BATHROOM PRIVILEGES. WILL CONTINUE TO MONITOR.
[2018-06-14] MEDS: MIRTAZAPINE 15 MG TABLET PO SCH (22:08)
[2018-06-15 04:00] VITALS: BP 101/61
[2018-06-15] MEDS: SUCRALFATE 1 G TABLET PO SCH ×3 (05:46→17:18)
[2018-06-15] MEDS: oxyCODONE IR immediate release 5 MG PO PRN ×3 (05:46→22:31)
[2018-06-15 06:29] LABS: BASOPHILS % (AUTO) 0.6 % (0.0-2.0); EOSINOPHILS % (AUTO) 6.8 % (0.0-6.0); HEMATOCRIT 31 % (39-51); HEMOGLOBIN 10.4 g/dL (13.5-17.5); LYMPHOCYTES # (AUTO) 1.4 /CMM (0.8-4.8); LYMPHOCYTES % (AUTO) 26.7 % (20.0-44.0); MEAN CORPUSCULAR HGB CONC 34 g/dl (31.0-36.0); MEAN CORPUSCULAR VOLUME 86 fL (80-96); MONOCYTES # (AUTO) 0.5 /CMM (0.1-1.30); MONOCYTES % (AUTO) 9.2 % (2.0-12.0); NEUTROPHILS # (AUTO) 3.1 /CMM (1.8-8.9); NEUTROPHILS % (AUTO) 56.7 % (43.0-81.0); PLATELET COUNT (AUTO) 344 /CMM (150-450); RED BLOOD CELL COUNT(AUTO) 3.61 MIL/uL (4.5-6.0); WHITE BLOOD COUNT (AUTO) 5.4 K/uL (4.3-11.0)
[2018-06-15 07:10] LABS: CALCIUM, SERUM 8.8 mg/dL (8.5-10.1); MAGNESIUM 1.8 mg/dL (1.8-2.4); PHOSPHORUS 3.6 mg/dL (2.5-4.9); POTASSIUM 4.2 mmol/L (3.5-5.1)
[2018-06-15] MEDS: PANTOPRAZOLE 40 MG TABLET.DR PO SCH (07:30)
[2018-06-15 08:00] VITALS: BP 102/69
--- NOTE | 2018-06-15 08:00 | NUR ---
MS RN NOTES RECEIVED PT IN BED ALERT AND ORIENTED X3. NO SOB AT THIS TIME. NPO AT THIS TIME FOR EGD TODAY. NEW LEFT FOREARM IV INSERTED WITH GOOD BLOOD RETURN. GAUGE #20. BED IN LOCKED POSITION. SAFETY MEASURES OBSERVED. PLAN OF CARE DISCUSSED WITH PT. WILL CONTINUE TO MONITOR.
[2018-06-15 08:07] LABS: *SPE A/G RATIO 0.8 (0.7-1.7); *SPE ALBUMIN 3.2 g/dL (2.9-4.4); *SPE ALPHA-1-GLOBULIN 0.3 g/dL (0.0-0.4); *SPE ALPHA-2-GLOBULIN 0.9 g/dL (0.4-1.0); *SPE BETA GLOBULIN 1.1 g/dL (0.7-1.3); *SPE GLOBULIN, TOTAL 3.8 g/dL (2.2-3.9); *SPE M-SPIKE Not Observed g/dL (Not Observed); *SPEGAMMA GLOBULIN 1.4 g/dL (0.4-1.8); IMMUNOGLOBULIN A, SERUM 543 mg/dL (61-437); IMMUNOGLOBULIN G, SERUM 1473 mg/dL (700-1600); IMMUNOGLOBULIN M, SERUM 102 mg/dL (20-172)
[2018-06-15] MEDS: SPIRONOLACTONE 25 MG TABLET PO SCH (09:00)
[2018-06-15] MEDS: CLOPIDOGREL BISULFATE 75 MG TABLET PO SCH (09:00)
[2018-06-15] MEDS: LEVETIRACETAM (250 MG) 250 MG TABLET PO SCH ×2 (09:00→21:08)
[2018-06-15] MEDS: FLUOXETINE HCL 20 MG CAPSULE PO SCH (09:00)
[2018-06-15] MEDS: GABAPENTIN 300 MG CAPSULE PO SCH ×3 (09:00→16:18)
[2018-06-15] MEDS: ASPIRIN 81 MG TAB.CHEW PO SCH (09:00)
[2018-06-15] MEDS: CARVEDILOL 3.125 MG TABLET PO SCH ×2 (09:00→16:18)
[2018-06-15] MEDS: LISINOPRIL (5MG) 5 MG TABLET PO SCH (09:00)
--- NOTE | 2018-06-15 09:07 | NUR ---
MS RN NOTES OR NURSE AT BEDSIDE. TAKING PT TO EGD.
--- NOTE | 2018-06-15 10:09 | NUR ---
MS RN NOTE BACK FROM EGD PATIENT ALERT, ORIENTED NO SOB NOTED NO C\O PAIN OR DISCOMFORT ART THIS TIME ,WILL CONT TO MONITOR CLOSELY
[2018-06-15] MEDS ORDERED: IV NS 0.9% 1,000 ML IV PRN (10:30)
[2018-06-15] MEDS: LORAZEPAM 1 MG TABLET PO PRN (11:10)
--- NOTE | 2018-06-15 11:43 | NUR ---
MS RN NOTE CALLED TO DR ELIZABETH , LEFT A MESSAGE THAT PATIENT REFUSING CLEAR LIQUID DIET , WILL F\U
--- NOTE | 2018-06-15 12:58 | NUR ---
MS RN NOTES SPOKE TO DR. ELIZABETH NOTIFIED THAT PATIENT REFUSED CLEAR LIQUID DIET. DR. ELIZABETH WANTS TO CONTINUE CLEAR LIQUID DIET DUE TO EGD EXAM. SPOKE AND EXPLAINED TO THE PATIENT THE RISK AND BENEFITS. PATIENT IS COOPERATING AT THE MOMENT.
[2018-06-15] MEDS: NYSTATIN (PYXIS) 500,000 UNIT/5 ML ORAL.SUSP PO SCH ×2 (13:27→17:18)
[2018-06-15] MEDS: ONDANSETRON HCL/PF 4 MG/2 ML VIAL IVP PRN (13:28)
--- NOTE | 2018-06-15 13:33 | NUR ---
MS RN NOTE C\O NAUSEA AND PAIN OXYCODONE ORDERED GIVEN BP 123/66 SAT 95% , ZOFRAN P GIVEN , WILL F\U
[2018-06-15] MEDS: SOD FERRIC GLUC 125 MG in IV NS 0.9% 100 ML IV SCH (14:26)
[2018-06-15 16:00] VITALS: BP 112/64
[2018-06-15] MEDS ORDERED: PNEUMOCOCCAL 23-VAL P-SAC VAC 0.5 ML VIAL SQ ONE (16:00)
--- NOTE | 2018-06-15 18:59 | NUR ---
MS RN CLOSING NOTES PT IN BED SLEEPING COMFORTABLY. PATIENT ALERT AND ORIENTED X3. PATIENT ON O2 2L VIA NASAL CANULA. NO SOB NO ACUTE DISTRESS NOTED AT THIS TIME. IV ON LEFT FOREARM GAUGE #20 INTACT AND PATENT. NO S/S OF INFECTION. SAFETY MEASURES IN PLACE. CALL LIGHT WITHIN REACH. BED LOCKED AND IN LOWEST POSITION. ALL NEEDS ANTICIPATED. WILL CONTINUE PLAN OF CARE. ENDORSED TO PM NURSE FOR XIMENA
--- NOTE | 2018-06-15 19:45 | NUR ---
MS RN NOTE: RECEIVED PT ON BED ALERT AND ORIENTED X3 WITH VERBALIZATION OF ANXIETY NOTED AT THIS TIME. PRN XANAX WILL BE GIVEN ORDERED. DENIES PAIN AND DISCOMFORT. ON ROOM AIR, SATURATING WELL. PT ACCIDENTALLY PULLED OUT IV LINE ON LEFT FOREARM, REINSERTED IV LINE ON RIGHT HAND #20, FLUSHING WELL WITH NO SIGNS/SYMPTOMS OF INFILTRATION NOTED. KEPT CLEAN, DRY AND COMFORTABLE. CALL LIGHT PLACED WITHIN REACH. WILL CONTINUE TO MONITOR PT.
[2018-06-15 20:00] VITALS: BP 117/75
[2018-06-15] MEDS: ALPRAZOLAM 1 MG TABLET PO PRN (20:01)
[2018-06-15] MEDS: MIRTAZAPINE 15 MG TABLET PO SCH (21:08)
--- NOTE | 2018-06-15 21:30 | NUR ---
MS RN NOTE: PT ACCIDENTALLY PULLED OUT HIS IV LINE AGAIN. PT REFUSED TO HAVE PERIPHERAL IV LINE INSERTED AT THIS TIME AND VERBALIZED "JUST DO IT TOMORROW. I JUST WANT TO SLEEP RIGHT NOW". EXPLAINED RISKS AND BENEFITS OF NOT HAVING AN IV LINE AND IVF BUT PT STILL REFUSED. WILL TRY TO ENCOURAGE PT AGAIN AND WILL CONTINUE TO MONITOR.
[2018-06-15] MEDS: ZOLPIDEM TARTRATE 5 MG TABLET PO PRN (22:09)
[2018-06-16] MEDS: NYSTATIN (PYXIS) 500,000 UNIT/5 ML ORAL.SUSP PO SCH ×3 (00:08→12:02)
[2018-06-16] MEDS: SUCRALFATE 1 G TABLET PO SCH ×3 (00:09→12:02)
[2018-06-16 04:00] VITALS: BP 116/67
--- NOTE | 2018-06-16 05:40 | NUR ---
MS RN NOTE: OFFERED TO REINSERT AN IV LINE BUT PT REFUSED AND VERBALIZED "I DON'T WANT YOU TO TOUCH ME". CHARGE NURSE AWARE.
[2018-06-16] MEDS: oxyCODONE IR immediate release 5 MG PO PRN ×3 (05:57→12:27)
--- NOTE | 2018-06-16 06:35 | NUR ---
MS RN NOTE: NO CHANGES NOTED THROUGHOUT THE SHIFT. NO ACUTE DISTRESS NOTED. PT COMPLAINED OF BACK PAIN, PRN PAIN MED OXY IR GIVEN. VITAL SIGNS WNL. NO SOB NOTED. KEPT CLEAN, DRY AND COMFORTABLE. CALL LIGHT PLACED WITHIN REACH. SAFETY AND FALL PRECAUTIONS OBSERVED AND MAINTAINED. WILL ENDORSE TO DAY SHIFT RN FOR CONTINUITY OF CARE.
[2018-06-16 07:14] LABS: BASOPHILS % (AUTO) 0.8 % (0.0-2.0); EOSINOPHILS % (AUTO) 6.2 % (0.0-6.0); HEMATOCRIT 28 % (39-51); HEMOGLOBIN 9.2 g/dL (13.5-17.5); LYMPHOCYTES # (AUTO) 1.1 /CMM (0.8-4.8); LYMPHOCYTES % (AUTO) 19.2 % (20.0-44.0); MEAN CORPUSCULAR HGB CONC 33 g/dl (31.0-36.0); MEAN CORPUSCULAR VOLUME 86 fL (80-96); MONOCYTES # (AUTO) 0.4 /CMM (0.1-1.30); MONOCYTES % (AUTO) 7.7 % (2.0-12.0); NEUTROPHILS # (AUTO) 3.7 /CMM (1.8-8.9); NEUTROPHILS % (AUTO) 66.1 % (43.0-81.0); PLATELET COUNT (AUTO) 328 /CMM (150-450); RED BLOOD CELL COUNT(AUTO) 3.24 MIL/uL (4.5-6.0); WHITE BLOOD COUNT (AUTO) 5.6 K/uL (4.3-11.0)
[2018-06-16 07:40] LABS: CALCIUM, SERUM 8.5 mg/dL (8.5-10.1); CREATININE 0.9 mg/dL (0.6-1.3); MAGNESIUM 1.6 mg/dL (1.8-2.4); PHOSPHORUS 2.6 mg/dL (2.5-4.9); POTASSIUM 4.2 mmol/L (3.5-5.1)
[2018-06-16] MEDS: PANTOPRAZOLE 40 MG TABLET.DR PO SCH (07:47)
[2018-06-16 08:00] VITALS: BP_SYST 112; BP_DIAS 62; BP_DIAS 63
[2018-06-16] MEDS: CARVEDILOL 3.125 MG TABLET PO SCH (09:10)
[2018-06-16] MEDS: CLOPIDOGREL BISULFATE 75 MG TABLET PO SCH (09:10)
[2018-06-16] MEDS: FLUOXETINE HCL 20 MG CAPSULE PO SCH (09:10)
[2018-06-16] MEDS: GABAPENTIN 300 MG CAPSULE PO SCH ×2 (09:13→12:02)
[2018-06-16 09:14] VITALS: BP 112/63
[2018-06-16] MEDS: LEVETIRACETAM (250 MG) 250 MG TABLET PO SCH (09:14)
[2018-06-16] MEDS: LISINOPRIL (5MG) 5 MG TABLET PO SCH (09:14)
[2018-06-16] MEDS: ASPIRIN 81 MG TAB.CHEW PO SCH (09:14)
[2018-06-16] MEDS: SPIRONOLACTONE 25 MG TABLET PO SCH (09:14)
--- NOTE | 2018-06-16 09:59 | NUR ---
MS RN OPENING NOTES PT IN BED AND AWAKE. PATIENT ALERT AND ORIENTED X3. PATIENT ON O2 2L VIA NASAL CANULA. NO SOB NO ACUTE DISTRESS NOTED AT THIS TIME. NIGHT RN REPORTED IV SL PULLED OUT BY PATIENT X 2. CURRENTLY NO IV ACCESS. SAFETY MEASURES IN PLACE. CALL LIGHT WITHIN REACH. BED LOCKED AND IN LOWEST POSITION. ALL NEEDS ANTICIPATED. CALL LIGHR WITHIN REACH. WILL CONTINUE TO MONITOR.
[2018-06-16] MEDS: ALPRAZOLAM 1 MG TABLET PO PRN (10:53)
[2018-06-16] MEDS ORDERED: ENSURE ENLIVE 237 ML LIQUID (VANILLA) PO SCH (13:30)
[2018-06-16] MEDS: SOD FERRIC GLUC 125 MG in IV NS 0.9% 100 ML IV SCH (14:55)
[2018-06-16] MEDS ORDERED: MAGNESIUM OXIDE 400 MG TABLET PO ONE (15:00)
[2018-06-16] MEDS: Magnesium 1GM/D5W 100ML PREMIX 100 ML IV SCH (15:00)
--- NOTE | 2018-06-16 16:29 | NUR ---
MS RN NOTE PATIENT REFUSES IV SL INSERTION. IV MEDICATIONS MAGNESIUM SULFATE NOT GIVEN. ORDER CHANGED TO PO MAGNESIUM. AWARE.
--- NOTE | 2018-06-16 16:30 | NUR ---
IV FERROUS SULFATE NOT GIVEN. PATIENT REFUSED TO HAVE NEW IV LINE INSERTED. PATIENT D/C AT 1630.
--- NOTE | 2018-06-16 16:31 | NUR ---
PATIENT D/C AT 1630 VIA EMT TRANSPORT. PATIENT GOING TO [facility]. REPORT GIVEN TO KAY DUMONT LIVESTOCK BREEDER. BELONGINGS LIST AND ALL D/C PAPERWORK COMPLETED. PATIENT EDUCATION GIVEN. PATIENT STABLE UPON DISCHARGE.
[2018-06-16] MEDS ORDERED: LIDOCAINE 1% INJ 50 ML MDV IJ ONE (21:00)
== END 2018-06-16 16:16 | DRG 291 ==
LOC: ER 11:18 → TELE1 15:28 → MEDSG1 06-12 09:56
PROVIDERS: ADMIT Nurse Practitioner Acute Care; ATTEND Family Medicine
PROC: 0DB38ZX Excision of Lower Esophagus, Via Natural or Artificial Opening Endoscopic, Diagnostic (ICD-10-PCS; principal; 2018-06-15)
PROC: 0DB78ZX Excision of Stomach, Pylorus, Via Natural or Artificial Opening Endoscopic, Diagnostic (ICD-10-PCS; 2018-06-15)
PROC: 0DB48ZX Excision of Esophagogastric Junction, Via Natural or Artificial Opening Endoscopic, Diagnostic (ICD-10-PCS; 2018-06-15)
DX: I11.0 Hypertensive heart disease with heart failure (principal); E43 Unspecified severe protein-calorie malnutrition; J44.1 Chronic obstructive pulmonary disease with (acute) exacerbation; J90 Pleural effusion, not elsewhere classified; Z68.1 Body mass index [BMI] 19.9 or less, adult; R64 Cachexia; I50.33 Acute on chronic diastolic (congestive) heart failure; E78.5 Hyperlipidemia, unspecified; E83.42 Hypomagnesemia; I25.10 Atherosclerotic heart disease of native coronary artery without angina pectoris; R06.03 Acute respiratory distress; I42.9 Cardiomyopathy, unspecified; F17.210 Nicotine dependence, cigarettes, uncomplicated; G40.909 Epilepsy, unspecified, not intractable, without status epilepticus; K20.9 Esophagitis, unspecified; K29.70 Gastritis, unspecified, without bleeding; D63.8 Anemia in other chronic diseases classified elsewhere; R94.31 Abnormal electrocardiogram [ECG] [EKG]; R13.10 Dysphagia, unspecified; E88.09 Other disorders of plasma-protein metabolism, not elsewhere classified; D50.9 Iron deficiency anemia, unspecified; K44.9 Diaphragmatic hernia without obstruction or gangrene; G89.29 Other chronic pain; F12.90 Cannabis use, unspecified, uncomplicated; K22.2 Esophageal obstruction; D47.2 Monoclonal gammopathy; F41.9 Anxiety disorder, unspecified
CPT/HCPCS: 36415; 70490-TC; 71045-TC; 71250-TC; 77075-TC; 80048-TC; 80053-TC; 80061-TC; 80076-TC; 80305; 81000-TC; 82232; 82378; 82728-TC; 82784; 83540-TC; 83735-TC; 83880; 84100-TC; 84155; 84165; 84439-TC; 84443-TC; 84484-TC; 85025-TC; 85610-TC; 85730-TC; 86334; 86850-TC; 87081-TC; 87086-TC; 88305-TC; 88313-TC; 88342; 90732; 93307-TC; G0378; G0480; J1940; J2405; J2704; J2916; J3475; J3490; J7030